=== PATIENT | female | born 1980 | race African-American/Black ===

== ENCOUNTER 2016-10-25 11:20 | Emergency (ER) | payer BC ==
--- NOTE | 2016-10-25 11:27 | ER Document Report ---
ED Medical Screen (RME) - General Stated Complaint: ABDOMINAL PAIN Notes: 36 yo female c/o dysuria, frequency, suprapubic pain since this morning. + hx/ o UTI. mild back pain. + nausea. no vomiting. no fever TRAVEL OUTSIDE OF THE [place] IN LAST 30 DAYS: No - Related Data Allergies/Adverse Reactions: oxycodone HCl [From Percocet] Allergy (Intermediate, Verified 10/25/16 11:25) Hives Past Medical History - Past Medical History Cardiac Medical History: Reports: Hx Pulmonary Embolism - When Pulmonary Medical History: Reports: Hx Bronchitis, Hx Pneumonia Neurological Medical History: Reports: Hx Migraine Renal/ Medical History: Reports: Hx Ectopic - 3, Hx Ovarian Cysts Musculoskeltal Medical History: Reports Hx Musculoskeletal Deformity Psychiatric Medical History: Reports: Hx Depression - With stillborn at the time her father had Past Surgical History: Reports: Hx Appendectomy, Hx Section, Hx Dilation and Curettage, Hx Gynecologic Surgery - Left Salpingectomy with ectopic , Hx Oral Surgery - [place] teeth - Immunizations Immunizations up to date: Yes Hx Diphtheria, Pertussis, Tetanus Vaccination: Yes - 2014
[2016-10-25 12:10] LABS: APPEARANCE,URINE CLOUDY; BILIRUBIN,URINE NEGATIVE (NEGATIVE); GLUCOSE, URINE NEGATIVE (NEGATIVE); KETONES,URINE TRACE mg/dL (NEGATIVE); LEUKOCYTE ESTERASE,URINE LARGE (NEGATIVE); NITRITE,URINE NEGATIVE (NEGATIVE); PROTEIN,URINE >=500 mg/dL (NEGATIVE); URINE SPECIFIC GRAVITY 1.022; UROBILINOGEN,URINE NEGATIVE mg/dL (<2.0)
[2016-10-25] MEDS ORDERED: ONDANSETRON ODT 4 MG TAB (6 TAB/DSPK) PO PRN (12:51)
[2016-10-25] MEDS ORDERED: ONDANSETRON 4 MG TAB.RAPDIS PO ONE (12:51)
[2016-10-25] MEDS ORDERED: PHENAZOPYRIDINE HCL 200 MG TABLET PO ONE (12:51)
[2016-10-25] MEDS ORDERED: SULFAMETHOXAZOLE/TRIMETHOPRIM 800-160 MG TABLET PO ONE (12:51)
--- NOTE | 2016-10-25 12:59 | ER Document Report ---
ED General - General Chief Complaint: Pain With Urination Stated Complaint: ABDOMINAL PAIN TRAVEL OUTSIDE OF THE [place] IN LAST 30 DAYS: No - HPI Patient complains to provider of: dysuria suprapubic abdominal pain Notes: Patient coming in for evaluation of dysuria and suprapubic abdominal pain ongoing for the last 24 hours. Patient denies fevers chills diarrhea vomiting patient states she is nauseous. Patient is unaware for status. Denies any vaginal bleeding vaginal discharge. Denies trauma to the area denies recent antibiotics recent travel. - Related Data Allergies/Adverse Reactions: oxycodone HCl [From Percocet] Allergy (Intermediate, Verified 10/25/16 11:25) Hives Past Medical History - Social History Smoking Status: Never Smoker Cigarette use (# per day): No Chew tobacco use (# tins/day): No Frequency of alcohol use: None Drug Abuse: None Family History: Arthritis, CAD, CVA, DM, Hyperlipidemia, Hypertension, Malignancy, Thyroid Disfunction Patient has suicidal ideation: No Patient has homicidal ideation: No - Past Medical History Cardiac Medical History: Reports: Hx Pulmonary Embolism - When Pulmonary Medical History: Reports: Hx Bronchitis, Hx Pneumonia Neurological Medical History: Reports: Hx Migraine Renal/ Medical History: Reports: Hx Ectopic - 3, Hx Ovarian Cysts Musculoskeltal Medical History: Reports Hx Musculoskeletal Deformity Psychiatric Medical History: Reports: Hx Depression - With stillborn at the time her father had Past Surgical History: Reports: Hx Appendectomy, Hx Section, Hx Dilation and Curettage, Hx Gynecologic Surgery - Left Salpingectomy with ectopic , Hx Oral Surgery - [place] teeth - Immunizations Immunizations up to date: Yes Hx Diphtheria, Pertussis, Tetanus Vaccination: Yes - 2014 Review of Systems - Review of Systems Constitutional: No symptoms reported EENT: No symptoms reported Cardiovascular: No symptoms reported Respiratory: No symptoms reported Gastrointestinal: Abdominal pain Genitourinary: Dysuria Female Genitourinary: No symptoms reported Musculoskeletal: No symptoms reported Skin: No symptoms reported Hematologic/Lymphatic: No symptoms reported Neurological/Psychological: No symptoms reported -: Yes All other systems reviewed and negative Physical Exam - Vital signs Vitals: Temp Pulse Resp BP Pulse Ox 97.9 F 83 17 131/71 H 97 10/25/16 11:25 10/25/16 11:25 10/25/16 11:25 10/25/16 11:25 10/25/16 11:25 Interpretation: Normal - General General appearance: Appears well, Alert - HEENT Head: Normocephalic, Atraumatic Eyes: Normal Pupils: PERRL - Respiratory Respiratory status: No respiratory distress Chest status: Nontender Breath sounds: Normal Chest palpation: Normal - Cardiovascular Rhythm: Regular Heart sounds: Normal auscultation Murmur: No - Abdominal Inspection: Normal Distension: No distension Bowel sounds: Normal Tenderness: Tender - Mild suprapubic abdominal pain Organomegaly: No organomegaly - Back Back: Normal, Nontender - Extremities General upper extremity: Normal inspection, Nontender, Normal color, Normal ROM , Normal temperature General lower extremity: Normal inspection, Nontender, Normal color, Normal ROM , Normal temperature, Normal weight bearing. No: Stevie's sign - Neurological Neuro grossly intact: Yes Cognition: Normal Orientation: AAOx4 [place] Coma Scale Eye Opening: Spontaneous [place] Coma Scale Verbal: Oriented [place] Coma Scale Motor: Obeys Commands [place] Coma Scale Total: 15 Speech: Normal Motor strength normal: LUE, RUE, LLE, RLE Sensory: Normal - Psychological Associated symptoms: Normal affect, Normal mood - Skin Skin Temperature: Warm Skin Moisture: Dry Skin Color: Normal Course - Re-evaluation Re-evalutation: 10/25/16 13:40 Urinalysis is more consistent with acute cystitis or urinary tract infection. Patient will be discharged home with Bactrim Pyridium and Zofran. Patient was given doses of all 3 these medications prior to leaving. Patient was able to tolerate these medications without vomiting. Patient was encouraged follow-up with her primary care physician. - Vital Signs Vital signs: Temp Pulse Resp BP Pulse Ox 97.9 F 64 15 121/72 98 10/25/16 11:25 10/25/16 13:25 10/25/16 13:25 10/25/16 13:25 10/25/16 13:25 - Laboratory Laboratory results interpreted by me: 10/25/16 11:30 Urine Protein >=500 H Urine Ketones TRACE H Urine Blood LARGE H Ur Leukocyte Esterase LARGE H Discharge - Discharge Clinical Impression: UTI (urinary tract infection) Qualifiers: Urinary tract infection type: acute cystitis Hematuria presence: with hematuria Qualified Code(s): N30.01 - Acute cystitis with hematuria Disposition: HOME, SELF-CARE Instructions: Trimethoprim-Sulfa ([facility]), Urinary Tract Infection ([facility]), Urinary Anesthetic Agent ([facility]) Additional Instructions: Please take medications as prescribed. Return to ER if symptoms worsen. Follow -up with your primary care physician. Prescriptions: Ondansetron [Zofran Odt 4 mg Tablet] 1 - 2 tab PO Q4H PRN #15 tab.rapdis PRN Reason: For Nausea/Vomiting Phenazopyridine HCl [Pyridium 100 Mg Tablet] 100 mg PO TID 5 Days Sulfamethoxazole/Trimethoprim [Bactrim 400-80 mg Tablet] 1 each PO BID #20 tablet Forms: Return to Work
[2016-10-25 13:27] VITALS: BP 121/72
== END 2016-10-25 13:25 | disposition home or self-care (01) ==
LOC: ER 11:20
DX: N30.01 Acute cystitis with hematuria (principal); R10.9 Unspecified abdominal pain; R30.0 Dysuria; R35.0 Frequency of micturition
CPT/HCPCS: 99284; 87086; 81025; 81001; S0119; J3490

== ENCOUNTER 2017-03-28 21:32 | Emergency (ER) | payer BC, MEDICAID ==
[2017-03-28] MEDS ORDERED: METOCLOPRAMIDE HCL INJ/PF 10 MG/2 ML SDV IV ONE (22:48)
[2017-03-28] MEDS ORDERED: DIPHENHYDRAMINE HCL 50 MG/ML VIAL IV ONE (22:48)
[2017-03-28] MEDS ORDERED: KETOROLAC TROMETHAMINE INJ/PF 30 MG/1 ML SDV IV ONE (22:48)
[2017-03-28] MEDS ORDERED: NORMAL SALINE 1000 ML 1,000 ML IV ONE (22:48)
--- NOTE | 2017-03-28 22:51 | ER Document Report ---
ED Headache - General Chief Complaint: Headache <24 hrs old Stated Complaint: HEADACHE Time Seen by Provider: 03/28/17 22:42 Notes: Patient is a 37-year-old female who comes emergency department for chief complaint of a migraine headache, she has a history of migraines in the past, she reports a throbbing headache on the right side in the middle of her forehead , photophobia, nausea, she has vomited twice. She does state these are her typical migraine symptoms but she has not had one in a while. She took Tylenol earlier without relief. She states she has been treated for migraines in the past but is not currently medicated for them. She has a hx of PE in the past but she is not on any blood thinners. she denies head injury, fever, any other areas of pain. LMP within the past month. TRAVEL OUTSIDE OF THE [place] IN LAST 30 DAYS: No - Related Data Allergies/Adverse Reactions: oxycodone HCl [From Percocet] Allergy (Intermediate, Verified 10/25/16 11:25) Arturo Past Medical History - General Information source: Patient - Social History Smoking Status: Never Smoker Frequency of alcohol use: None Drug Abuse: None Lives with: Family Family History: Arthritis, CAD, CVA, DM, Hyperlipidemia, Hypertension, Malignancy, Thyroid Disfunction Patient has suicidal ideation: No Patient has homicidal ideation: No - Past Medical History Cardiac Medical History: Reports: Hx Pulmonary Embolism - When Pulmonary Medical History: Reports: Hx Bronchitis, Hx Pneumonia Neurological Medical History: Reports: Hx Migraine Renal/ Medical History: Reports: Hx Ectopic - 3, Hx Ovarian Cysts. Denies: Hx Peritoneal Dialysis Musculoskeltal Medical History: Reports Hx Musculoskeletal Deformity Psychiatric Medical History: Reports: Hx Depression - With stillborn at the time her father had Past Surgical History: Reports: Hx Appendectomy, Hx Section, Hx Dilation and Curettage, Hx Gynecologic Surgery - Left Salpingectomy with ectopic , Hx Oral Surgery - [place] teeth - Immunizations Immunizations up to date: Yes Hx Diphtheria, Pertussis, Tetanus Vaccination: Yes - 2014 Review of Systems - Review of Systems Constitutional: No symptoms reported EENT: No symptoms reported Cardiovascular: No symptoms reported Respiratory: No symptoms reported Gastrointestinal: See HPI Genitourinary: No symptoms reported Female Genitourinary: No symptoms reported Musculoskeletal: No symptoms reported Skin: No symptoms reported Hematologic/Lymphatic: No symptoms reported Neurological/Psychological: See HPI Physical Exam - Vital signs Vitals: Temp Pulse Resp BP Pulse Ox 98 F 71 16 127/77 H 99 03/28/17 21:57 03/28/17 21:57 03/28/17 21:57 03/28/17 21:57 03/28/17 21:57 Interpretation: Normal - General General appearance: Alert, Anxious In distress: Mild - HEENT Head: Normocephalic, Atraumatic Eyes: Tears Conjunctiva: Normal Extraocular movements intact: Yes Eyelashes: Normal Pupils: PERRL Ears: Normal External canal: Normal Tympanic membrane: Normal Sinus: Normal Nasal: Normal Mouth/Lips: Normal Mucous membranes: Normal Pharynx: Normal Neck: Normal. No: Meningismus - Respiratory Respiratory status: No respiratory distress Chest status: Nontender Breath sounds: Normal Chest palpation: Normal - Cardiovascular Rhythm: Regular Heart sounds: Normal auscultation Murmur: No - Abdominal Inspection: Normal Distension: No distension Bowel sounds: Normal Tenderness: Nontender. No: Tender, McBurney's point, Rubalcava's sign, Guarding Organomegaly: No organomegaly - Back Back: Normal, Nontender - Extremities General upper extremity: Normal inspection, Nontender, Normal color, Normal ROM , Normal temperature General lower extremity: Normal inspection, Nontender, Normal color, Normal ROM , Normal temperature, Normal weight bearing. No: Stevie's sign - Neurological Neuro grossly intact: Yes Cognition: Normal Orientation: AAOx4 [place] Coma Scale Eye Opening: Spontaneous [place] Coma Scale Verbal: Oriented [place] Coma Scale Motor: Obeys Commands [place] Coma Scale Total: 15 Speech: Normal Motor strength normal: LUE, RUE, LLE, RLE Sensory: Normal - Psychological Associated symptoms: Normal affect, Normal mood - Skin Skin Temperature: Warm Skin Moisture: Dry Skin Color: Normal Course - Re-evaluation Re-evalutation: Patient is tearful and obviously very uncomfortable from her headache on initial evaluation, however on reevaluation after treatment patient smiling, states her headache is almost completely resolved, she states she feels much better and she wants to try drinking something. Patient was given lina jaden, she tolerated this without difficulty, she states she feels much better and she wants to go home. No neurological deficits on examination. Patient has history of the same. Giving Fioricet for treatment, discussed primary care follow-up, discussed return precautions, patient states understanding and agreement. - Vital Signs Vital signs: Temp Pulse Resp BP Pulse Ox 97.8 F 74 16 121/70 98 03/29/17 01:25 03/29/17 01:25 03/29/17 01:25 03/29/17 01:25 03/29/17 01:25 Discharge - Discharge Clinical Impression: Headache Qualifiers: Headache type: unspecified Headache chronicity pattern: acute headache Intractability: not intractable Qualified Code(s): R51 - Headache Condition: Stable Disposition: HOME, SELF-CARE Additional Instructions: Your symptoms and response to treatment are consistent with a migraine. Take the prescribed medication if needed. Follow-up with primary care for additional management. Return to emergency department for any returned, concerning, or worsening symptoms. Prescriptions: Butalb/Acetaminophen/Caffeine [Fioricet (50-325-40 mg) Tablet] 1 tab PO Q4HP PRN #30 tab PRN Reason: Forms: Return to Work
[2017-03-29 01:42] VITALS: BP 121/70
== END 2017-03-29 01:30 | disposition home or self-care (01) ==
LOC: ER 21:32
DX: R51 Headache (principal); R11.2 Nausea with vomiting, unspecified
CPT/HCPCS: 99283; 96374; 96375; J1200; J1885; J2765; J7030

== ENCOUNTER 2017-10-11 16:54 | Emergency (ER) | payer MEDICAID ==
--- NOTE | 2017-10-11 17:38 | ER Document Report ---
ED Medical Screen (RME) - General Chief Complaint: Abdominal Pain Stated Complaint: ABDOMINAL PAIN,VAGINAL ITCH/ODOR Time Seen by Provider: 10/11/17 17:37 Mode of Arrival: Ambulatory Information source: Patient Notes: 37-year-old female presents with complaints of 1 day duration of abdominal pain as well as 3 day duration of vaginal discharge itching I have greeted and performed a rapid initial assessment of this patient. A comprehensive ED assessment and evaluation of the patient, analysis of test results and completion of the medical decision making process will be conducted by additional ED providers. PHYSICAL EXAMINATION: GENERAL: Well-appearing, well-nourished and in no acute distress. HEAD: Atraumatic, normocephalic. EYES: Pupils equal round extraocular movements intact, conjunctiva are normal. ENT: Nares patent NECK: Normal range of motion LUNGS: No respiratory distress Musculoskeletal: Normal range of motion NEUROLOGICAL: Normal speech, normal gait. PSYCH: Normal mood, normal affect. SKIN: Warm, Dry, normal turgor, no rashes or lesions noted. TRAVEL OUTSIDE OF THE [place] IN LAST 30 DAYS: No - Related Data Allergies/Adverse Reactions: oxycodone HCl [From Percocet] Allergy (Intermediate, Verified 10/11/17 16:56) Hives Past Medical History - Social History Chew tobacco use (# tins/day): No Frequency of alcohol use: Occasional Drug Abuse: None - Past Medical History Cardiac Medical History: Reports: Hx Pulmonary Embolism - When Pulmonary Medical History: Reports: Hx Bronchitis, Hx Pneumonia Neurological Medical History: Reports: Hx Migraine Renal/ Medical History: Reports: Hx Ectopic - 3, Hx Ovarian Cysts. Denies: Hx Peritoneal Dialysis Musculoskeltal Medical History: Reports Hx Musculoskeletal Deformity Psychiatric Medical History: Reports: Hx Depression - With stillborn at the time her father had Past Surgical History: Reports: Hx Appendectomy, Hx Section, Hx Dilation and Curettage, Hx Gynecologic Surgery - Left Salpingectomy with ectopic , Hx Oral Surgery - [place] teeth - Immunizations Immunizations up to date: Yes Hx Diphtheria, Pertussis, Tetanus Vaccination: Yes - 2014 Physical Exam - Vital signs Vitals: Temp Pulse Resp BP Pulse Ox 98.9 F 81 16 112/72 97 10/11/17 17:06 10/11/17 17:06 10/11/17 17:06 10/11/17 17:06 10/11/17 17:06 Course - Vital Signs Vital signs: Temp Pulse Resp BP Pulse Ox 98.9 F 81 16 112/72 97 10/11/17 17:06 10/11/17 17:06 10/11/17 17:06 10/11/17 17:06 10/11/17 17:06
[2017-10-11 18:28] LABS: ABSOLUTE BASOPHILS # (AUTO) 0.1 10^3/uL (0.0-0.2); ABSOLUTE EOSINOPHILS # (AUTO) 0.1 10^3/uL (0.0-0.6); ABSOLUTE LYMPHOCYTES (AUTO) 2.4 10^3/uL (0.5-4.7); ABSOLUTE MONOCYTES (AUTO) 0.4 10^3/uL (0.1-1.4); ABSOLUTE NEUT (AUTO) 4.5 10^3/uL (1.7-8.2); BASOPHILS % (AUTO) 0.7 % (0-2); EOSINOPHILS % (AUTO) 1.5 % (0-6); HEMATOCRIT 40.5 % (36.0-47.0); HEMOGLOBIN 13.5 g/dL (12.0-15.5); LYMPHOCYTES % (AUTO) 31.9 % (13-45); MEAN CORPUSCULAR HEMOGLOBIN 28.6 pg (27.0-33.4); MEAN CORPUSCULAR HGB CONC 33.4 g/dL (32.0-36.0); MEAN CORPUSCULAR VOLUME 86 fl (80-97); MONOCYTES % (AUTO) 5.4 % (3-13); RED BLOOD COUNT 4.73 10^6/uL (3.72-5.28); RED CELL DISTRIBUTION WIDTH 13.2 % (11.5-14.0); SEGMENTED NEUTROPHILS % (AUTO) 60.5 % (42-78); WHITE BLOOD COUNT 7.5 10^3/uL (4.0-10.5)
[2017-10-11] MEDS ORDERED: CEFTRIAXONE INJ 250 MG VIAL IM ONE (18:47)
[2017-10-11] MEDS ORDERED: METRONIDAZOLE 500 MG TABLET PO ONE (18:47)
[2017-10-11] MEDS ORDERED: LIDOCAINE 1% INJ-PF (10 MG/ML) 30 ML SDV INJ ONE (18:47)
[2017-10-11] MEDS ORDERED: DOXYCYCLINE HYCLATE 100 MG TABLET PO ONE (18:47)
--- NOTE | 2017-10-11 18:49 | ER Document Report ---
ED GI/ - General Mode of Arrival: Ambulatory Information source: Patient TRAVEL OUTSIDE OF THE [place] IN LAST 30 DAYS: No - HPI Patient complains to provider of: Abdominal pain, Vaginal discharge Onset: Other - see notes above Location: Other - see notes above Sexual history: Active, IUD - Mirena Associated symptoms: Other - see notes above <EVELYNE NAVA - Last Filed: 10/11/17 23:31> <DEBRA HOPKINS - Last Filed: 10/11/17 23:36> - General Chief Complaint: Abdominal Pain Stated Complaint: ABDOMINAL PAIN,VAGINAL ITCH/ODOR Time Seen by Provider: 10/11/17 17:37 Notes: 37 year old female presents to the ED complaining of suprapubic abdominal pain that started yesterday and vaginal odor and pruritus that started 3 days ago. Patient reports she has used a home remedy of apple cider vinegar and Monostat to no relief. Patient denies any vaginal discharge, new sexual partners, dysuria , burning with urination, or vomiting. Patient wants her Mirena IUD (implanted 4 years ago) removed in the ED and acknowledges that removal will no longer protect her from future pregnancies. Patient reports that she has had multiple ovarian cysts in the past secondary to the IUD and wants it removed at this time. (EVELYNE NAVA) - Related Data Allergies/Adverse Reactions: oxycodone HCl [From Percocet] Allergy (Intermediate, Verified 10/11/17 16:56) Hives Past Medical History - General Information source: Patient - Social History Smoking Status: Never Smoker Chew tobacco use (# tins/day): No Frequency of alcohol use: Occasional Drug Abuse: None Family History: Arthritis, CAD, CVA, DM, Hyperlipidemia, Hypertension, Malignancy, Thyroid Disfunction Patient has suicidal ideation: No Patient has homicidal ideation: No - Past Medical History Cardiac Medical History: Reports: Hx Pulmonary Embolism - When Pulmonary Medical History: Reports: Hx Bronchitis, Hx Pneumonia Neurological Medical History: Reports: Hx Migraine Renal/ Medical History: Reports: Hx Ectopic - 3, Hx Ovarian Cysts. Denies: Hx Peritoneal Dialysis Musculoskeltal Medical History: Reports Hx Musculoskeletal Deformity Psychiatric Medical History: Reports: Hx Depression - With stillborn at the time her father had Past Surgical History: Reports: Hx Appendectomy, Hx Section, Hx Dilation and Curettage, Hx Gynecologic Surgery - Left Salpingectomy with ectopic , Hx Oral Surgery - [place] teeth - Immunizations Immunizations up to date: Yes Hx Diphtheria, Pertussis, Tetanus Vaccination: Yes - 2014 <EVELYNE NAVA - Last Filed: 10/11/17 23:31> Review of Systems - Review of Systems Constitutional: No symptoms reported EENT: No symptoms reported Cardiovascular: No symptoms reported Respiratory: No symptoms reported Gastrointestinal: See HPI, Abdominal pain - suprapubic. denies: Vomiting Genitourinary: No symptoms reported. denies: Burning, Dysuria Female Genitourinary: See HPI, Vaginal odor Musculoskeletal: No symptoms reported Skin: No symptoms reported Hematologic/Lymphatic: No symptoms reported Neurological/Psychological: No symptoms reported -: Yes All other systems reviewed and negative <EVELYNE NAVA - Last Filed: 10/11/17 23:31> Physical Exam <EVELYNE NAVA - Last Filed: 10/11/17 23:31> <DEBRA HOPKINS - Last Filed: 10/11/17 23:36> - Vital signs Vitals: Temp Pulse Resp BP Pulse Ox 98.9 F 81 16 112/72 97 10/11/17 17:06 10/11/17 17:06 10/11/17 17:06 10/11/17 17:06 10/11/17 17:06 - Notes Notes: GENERAL: Alert, interacts well. No acute distress. HEAD: Normocephalic, atraumatic. EYES: Pupils equal, round, and reactive to light. Extraocular movements intact. ENT: Oral mucosa moist, tongue midline. NECK: Full range of motion. Supple. Trachea midline. LUNGS: Clear to auscultation bilaterally, no wheezes, rales, or rhonchi. No respiratory distress. HEART: Regular rate and rhythm. No murmurs, gallops, or rubs. ABDOMEN: Soft. Non-distended. Bowel sounds present in all 4 quadrants. Suprapubic tenderness to palpation. No guarding, rebound, or rigidity. GENITOURINARY: Thin green discharge visualized. Cervical motion tenderness to palpation. Pelvic exam chaperoned by Rosalinda Ball RN. BACK: No CVA tenderness to percussion. EXTREMITIES: Moves all 4 extremities spontaneously. No edema, radial pulses 2/4 bilaterally. No cyanosis. NEUROLOGICAL: Alert and oriented x3. Normal speech. PSYCH: Normal affect, normal mood. SKIN: Warm, dry, normal turgor. No rashes or lesions noted. (EVELYNE NAVA) Course - Laboratory Result Diagrams: 10/11/17 18:13 10/11/17 18:13 <EVELYNE NAVA - Last Filed: 10/11/17 23:31> - Laboratory Result Diagrams: 10/11/17 18:13 10/11/17 18:13 <DEBRA HOPKINS - Last Filed: 10/11/17 23:36> - Re-evaluation Re-evalutation: 10/11/17 20:52 Physical examination consistent with PID, swabs revealed trichomonas but no gonorrhea or chlamydia, patient is treated with Rocephin, doxycycline and Flagyl , IUD was removed per her request. CBC unremarkable, chemistries unremarkable, test negative, urinalysis shows moderate leukocyte esterase, this will be treated with the doxycycline. No yeast was seen. Patient counseled on having her partner tested for Trichomonas and not having sex until he has been tested and treated. Discharged home. 10/11/17 23:32 Strings were in good position, using curved hemostats IUD was removed with gentle pressure. Discharged home. (DEBRA HOPKINS) - Vital Signs Vital signs: Temp Pulse Resp BP Pulse Ox 98.9 F 89 16 118/73 97 10/11/17 17:06 10/11/17 21:25 10/11/17 21:25 10/11/17 21:25 10/11/17 21:25 - Laboratory Laboratory results interpreted by me: 10/11/17 10/11/17 17:50 18:13 Chloride 108 H Urine Ketones 20 H Ur Leukocyte Esterase MODERATE H Discharge <EVELYNE NAVA - Last Filed: 10/11/17 23:31> <DEBRA HOPKINS - Last Filed: 10/11/17 23:36> - Discharge Clinical Impression: Pelvic inflammatory disease, Trichomonas vaginalis infection, Encounter for IUD removal Condition: Stable Disposition: HOME, SELF-CARE Additional Instructions: Pelvic Inflammatory Disease You have been diagnosed as having pelvic inflammatory disease (PID). This is an infection of the fallopian tubes and surrounding areas of the pelvis. Symptoms are usually pelvic pain and discharge. The infection can do permanent damage to the tubes and ovaries. It should be taken very seriously. Treatment is antibiotics, which may be given by vein or by injection if the infection seems serious. It's important that you receive all recommended medication. Condoms help prevent spread of this infection to others. Because this infection is spread sexually, it's important that your sexual partner be checked before resuming sexual relations. Your tests were negative for gonorrhea and chlamydia today. They did show trichomonas. Call the doctor or return at once if you develop increasing fever, rash, severe pelvic pain, vaginal bleeding (other than your period), or problems with your bladder or bowels. Your IUD was removed. You are no longer protected against . Trichomonas Infection Trichomoniasis is infection of the vagina or male genital tract with Trichomonas vaginalis. It can be asymptomatic or cause urethritis, vaginitis, or occasionally cystitis, epididymitis, or prostatitis. Diagnosis is by microscopic examination of vaginal or prostatic secretions or by urethral culture. Patients and sex partners are treated with metronidazole. T. vaginalis is a flagellated, sexually transmitted protozoan that more often infects women (about 20% of women of reproductive age) than men. Infection may be asymptomatic in either sex, but asymptomatic is the rule for men. In men, protozoa may persist for long periods in the tract without causing symptoms; thus, protozoa may be transmitted unwittingly to sex partners. Trichomoniasis may account for up to 5% of nongonococcal, nonchlamydial urethritis in men in some areas. Co-infection with gonorrhea and other sexually transmitted diseases (STDs) is common. In women, symptoms range from none to copious, yellow-green, frothy vaginal discharge with soreness of the vulva and perineum, dyspareunia, and dysuria. Asymptomatic infection may become symptomatic at any time as the vulva and perineum become inflamed and edema develops in the labia. The vaginal thomas and surface of the cervix may have punctate, red "strawberry" spots. Urethritis and possibly cystitis may also occur. Men are usually asymptomatic; however, sometimes urethritis results in a discharge that may be transient, frothy, or purulent or that causes dysuria and frequency, usually early in the morning. Often, urethritis is mild and causes only minimal urethral irritation and occasional moisture at the urethral meatus , under the foreskin, or both. Epididymitis and prostatitis are rare complications. Trichomoniasis is suspected in women with vaginitis, in men with urethritis , and in their sex partners. Suspicion is high if symptoms persist after patients have been evaluated and treated for other infections such as gonorrhea and chlamydial, mycoplasmal, and ureaplasmal infections. In women, diagnosis is based on clinical criteria and in-office testing. The saline wet mount is examined microscopically as soon as possible to detect trichomonads.In men, microscopy of urine is insensitive, although occasionally organisms are visible in a first-voided morning specimen or a centrifuged specimen. Cultures of urine and urethral swabs are more sensitive. As with diagnosis of any STD, patients with trichomoniasis should be tested to exclude other common STDs such as gonorrhea and chlamydial infection. Metronidazole or tinidazole 2 g po in a single dose cures up to 95% of women if sex partners are treated simultaneously. Effectiveness of single-dose regimens in men is not as clear, so treatment is typically with metronidazole or tinidazole 500 mg bid for 5 to 7 days. Sex partners should be screened and treated for trichomoniasis and other STDs. If poor adherence to follow-up is likely, treatment can be initiated in sex partners of patients with documented trichomoniasis without confirming the diagnosis in the partner. Prescriptions: Doxycycline Hyclate 100 mg PO BID #28 capsule Metronidazole [Flagyl 500 mg Tablet] 500 mg PO Q6H #40 tablet Referrals: JUAN PUGH MD [ACTIVE STAFF] - Follow up in 1 week Scribe Attestation: 10/11/17 23:33 I personally performed the services described in the documentation, reviewed and edited the documentation which was dictated to the scribe in my presence, and it accurately records my words and actions. (DEBRA HOPKINS) Scribe Documentation - Scribe Written by Mikhail:: Mikhail Tapia, 10/11/2017 [id number] acting as scribe for :: Brad <EVELYNE NAVA - Last Filed: 10/11/17 23:31>
[2017-10-11 18:50] LABS: ALANINE AMINOTRANSFERASE 28 U/L (9-52); ALBUMIN 3.9 g/dL (3.5-5.0); ALKALINE PHOSPHATASE 69 U/L (38-126); ANION GAP 11 (5-19); ASPARTATE AMINO TRANSFERASE 18 U/L (14-36); BILIRUBIN,DIRECT 0.2 mg/dL (0.0-0.4); BILIRUBIN,TOTAL 0.4 mg/dL (0.2-1.3); BLOOD UREA NITROGEN 15 mg/dL (7-20); CALCIUM 9.8 mg/dL (8.4-10.2); CARBON DIOXIDE 23 mmol/L (22-30); CHLORIDE 108 mmol/L (98-107); CREATININE RESULT 0.88 mg/dL (0.52-1.25); GLUCOSE 99 mg/dL (75-110); LIPASE 124.6 U/L (23-300); SODIUM 141.6 mmol/L (137-145); TOTAL PROTEIN 7.1 g/dL (6.3-8.2)
[2017-10-11 18:54] LABS: APPEARANCE,URINE SLIGHTLY-CLOUDY; BILIRUBIN,URINE NEGATIVE (NEGATIVE); GLUCOSE, URINE NEGATIVE (NEGATIVE); KETONES,URINE 20 mg/dL (NEGATIVE); LEUKOCYTE ESTERASE,URINE MODERATE (NEGATIVE); NITRITE,URINE NEGATIVE (NEGATIVE); PROTEIN,URINE NEGATIVE (NEGATIVE); URINE SPECIFIC GRAVITY 1.027; UROBILINOGEN,URINE NEGATIVE mg/dL (<2.0)
[2017-10-11 21:32] VITALS: BP 118/73
== END 2017-10-11 21:32 | disposition home or self-care (01) ==
LOC: ER 16:54
DX: N73.9 Female pelvic inflammatory disease, unspecified (principal); A59.01 Trichomonal vulvovaginitis; L29.2 Pruritus vulvae; Z30.432 Encounter for removal of intrauterine contraceptive device
CPT/HCPCS: 99284; 96372; 36415; 87210; 83690; 85025; 81025; 80053; 81001; 87491; 87591; J3490 ×3; J0696

== ENCOUNTER 2018-08-17 11:38 | Emergency (ER) | payer MEDICAID ==
[2018-08-17] MEDS ORDERED: GUAIFENESIN/CODEINE PHOS 100-10 MG/ 5 ML UDC PO ONE (12:46)
[2018-08-17] MEDS ORDERED: IPRATROPIUM/ALBUTEROL 0.5-2.5 MG/3 ML AMPUL NEB ONE (12:46)
[2018-08-17 12:48] LABS: APPEARANCE,URINE SLIGHTLY-CLOUDY; BILIRUBIN,URINE NEGATIVE (NEGATIVE); COLOR,URINE YELLOW; GLUCOSE, URINE NEGATIVE (NEGATIVE); KETONES,URINE NEGATIVE (NEGATIVE); LEUKOCYTE ESTERASE,URINE TRACE (NEGATIVE); NITRITE,URINE NEGATIVE (NEGATIVE); PROTEIN,URINE NEGATIVE (NEGATIVE); URINE SPECIFIC GRAVITY 1.004; UROBILINOGEN,URINE NEGATIVE mg/dL (<2.0)
--- NOTE | 2018-08-17 12:49 | ER Document Report ---
ED Respiratory Problem - General Chief Complaint: Cough Stated Complaint: CHEST PAIN Time Seen by Provider: 08/17/18 12:45 Notes: History of Present Illness Chief Complaint: [cough] Cough quality= [dry], [without] sputum [No] hemoptysis [ ] History obtained from [patient] 38 years old female presents today with 2-3-day history of right ear pain sore throat coughing largely dry cough. Denies any difficulty in breathing. Denies any neck pain. Denies any neck stiffness. Denies any nausea vomiting abdominal pain diarrhea dysuria frequency. But had chest wall pain on coughing. Symptoms began: [past few days] Onset: [gradual] Timing: [constant, lasts hours, persists] Intensity: [moderate] Location: [respiratory tract] Radiation: [none] Migration: [none] Aggravating factors: [none] Relieving factors: [none] Review of Systems : All other systems negative as reviewed. CONSTITUTIONAL No Fever. EYES No eye pain. ENT No sore throat CARDIOVASCULAR No chest pain. RESPIRATORY No SOB, No wheezing, No orthopnea, No pedal edema. GI No abdominal pain, no vomiting, no diarrhea. GENITOURINARY No dysuria. SKIN No rash. NEUROLOGIC No headache. MUSCULOSKELETAL No back pain, No calf pain, No calf swelling Physical Exam CONSTITUTIONAL Vital signs reviewed, Patient has normal respiratory rate, Well appearing, Patient appears comfortable, normal stature. HEAD Atraumatic, Normocephalic. EYES Eyes are normal to inspection. ENT Pharyngeal tonsillar mucosa was erythematous Ears -right ear tympanic membrane is erythematous no exudates or bulging noted. , Left ear -normal to inspection, Nose examination normal. NECK No jugular venous distention. RESPIRATORY CHEST Breath sounds [normal], No respiratory distress. CARDIOVASCULAR RRR, No murmurs, Normal S1 S2, No rub, No gallop. ABDOMEN Abdomen is nontender, No masses, Bowel sounds normal, No distension, No peritoneal signs. BACK Normal inspection. UPPER EXTREMITY Inspection normal. LOWER EXTREMITY Inspection normal. NEURO No facial droop, normal speech. SKIN Skin is warm, Skin is dry, Skin is normal color. PSYCHIATRIC Normal affect. TRAVEL OUTSIDE OF THE [place] IN LAST 30 DAYS: No - HPI Notes: Dictated - Related Data Allergies/Adverse Reactions: oxycodone HCl [From Percocet] Allergy (Intermediate, Verified 08/17/18 11:44) Hives Past Medical History - Social History Smoking Status: Never Smoker Frequency of alcohol use: Rare Drug Abuse: None Lives with: Alone Family History: Arthritis, CAD, CVA, DM, Hyperlipidemia, Hypertension, Malignancy, Thyroid Disfunction - Past Medical History Cardiac Medical History: Reports: Hx Pulmonary Embolism - When Pulmonary Medical History: Reports: Hx Bronchitis, Hx Pneumonia Neurological Medical History: Reports: Hx Migraine Renal/ Medical History: Reports: Hx Ectopic - 3, Hx Ovarian Cysts. Denies: Hx Peritoneal Dialysis Musculoskeletal Medical History: Reports Hx Musculoskeletal Deformity Psychiatric Medical History: Reports: Hx Depression - With stillborn at the time her father had Past Surgical History: Reports: Hx Appendectomy, Hx Section, Hx Dilation and Curettage, Hx Gynecologic Surgery - Left Salpingectomy with ectopic , Hx Oral Surgery - [place] teeth - Immunizations Immunizations up to date: Yes Hx Diphtheria, Pertussis, Tetanus Vaccination: Yes - 2014 Review of Systems - Review of Systems Notes: Dictated Physical Exam - Vital signs Vitals: Temp Pulse Resp BP Pulse Ox 98.2 F 118 H 23 H 119/85 99 08/17/18 11:47 08/17/18 11:47 08/17/18 11:47 08/17/18 11:47 08/17/18 11:47 - Notes Notes: Dictated Course - Vital Signs Vital signs: Temp Pulse Resp BP Pulse Ox 98.2 F 118 H 23 H 119/85 99 08/17/18 11:47 08/17/18 11:47 08/17/18 11:47 08/17/18 11:47 08/17/18 11:47 - Laboratory Result Diagrams: 08/17/18 13:07 Laboratory results interpreted by me: 08/17/18 08/17/18 12:15 13:07 RBC 5.31 H Ur Leukocyte Esterase TRACE H - Diagnostic Test Radiology reviewed: Reports reviewed - Chest x-ray reported by radiologist as unremarkable Discharge - Discharge Clinical Impression: URI (upper respiratory infection) Qualifiers: URI type: unspecified viral URI Qualified Code(s): J06.9 - Acute upper respiratory infection, unspecified Pharyngitis Qualifiers: Pharyngitis/tonsillitis etiology: unspecified etiology Qualified Code(s): J02.9 - Acute pharyngitis, unspecified Condition: Fair Disposition: HOME, SELF-CARE Instructions: Upper Respiratory Infection, Infant or Child ([facility]) Prescriptions: Cephalexin Monohydrate [Keflex 500 mg Capsule] 500 mg PO Q6H 7 Days #30 capsule
[2018-08-17 13:25] LABS: ABSOLUTE BASOPHILS # (AUTO) 0.1 10^3/uL (0.0-0.2); ABSOLUTE EOSINOPHILS # (AUTO) 0.2 10^3/uL (0.0-0.6); ABSOLUTE LYMPHOCYTES (AUTO) 1.5 10^3/uL (0.5-4.7); ABSOLUTE MONOCYTES (AUTO) 0.4 10^3/uL (0.1-1.4); ABSOLUTE NEUT (AUTO) 4.3 10^3/uL (1.7-8.2); EOSINOPHILS % (AUTO) 3.2 % (0-6); LYMPHOCYTES % (AUTO) 22.9 % (13-45); MEAN CORPUSCULAR HEMOGLOBIN 28.2 pg (27.0-33.4); MEAN CORPUSCULAR HGB CONC 32.5 g/dL (32.0-36.0); MEAN CORPUSCULAR VOLUME 87 fl (80-97); MONOCYTES % (AUTO) 6.7 % (3-13); PLATELET COUNT 360 10^3/uL (150-450); RED BLOOD COUNT 5.31 10^6/uL (3.72-5.28); RED CELL DISTRIBUTION WIDTH 13.6 % (11.5-14.0); SEGMENTED NEUTROPHILS % (AUTO) 66.2 % (42-78); TOTAL CELLS COUNTED % (AUTO) 100 %; WHITE BLOOD COUNT 6.5 10^3/uL (4.0-10.5)
[2018-08-17 13:43] LABS: A TYPE INFLUENZA AG NEGATIVE (NEGATIVE); B INFLUENZA AG NEGATIVE (NEGATIVE)
--- NOTE | 2018-08-17 13:45 | RADIOLOGY REPORT (SQ) ---
EXAM DESCRIPTION: CHEST 2 VIEWS COMPLETED DATE/TIME: 08/17/2018 1:37 pm REASON FOR STUDY: Cough COMPARISON: 08/13/2007. EXAM PARAMETERS: NUMBER OF VIEWS: two views TECHNIQUE: Digital Frontal and Lateral radiographic views of the chest acquired. RADIATION DOSE: NA LIMITATIONS: none FINDINGS: LUNGS AND PLEURA: No opacities, masses or pneumothorax. No pleural effusion. MEDIASTINUM AND HILAR STRUCTURES: No masses or contour abnormalities. HEART AND VASCULAR STRUCTURES: Heart normal size. No evidence for failure. BONES: No acute findings. HARDWARE: None in the chest. OTHER: No other significant finding. IMPRESSION: NO ACUTE RADIOGRAPHIC FINDING IN THE CHEST. TECHNICAL DOCUMENTATION: JOB ID: [id number] [employer]- All Rights Reserved Reading location - IP/workstation name: [email or web address]
[2018-08-17 15:05] VITALS: BP 121/83
--- NOTE | 2018-08-17 19:22 | EKG REPORT ---
SEVERITY:- OTHERWISE NORMAL ECG - SINUS TACHYCARDIA : Confirmed by: Tamar Garcia MD 17-Aug-2018 19:21:26
== END 2018-08-17 15:04 | disposition home or self-care (01) ==
LOC: ER 11:38
DX: J06.9 Acute upper respiratory infection, unspecified (principal); B97.89 Other viral agents as the cause of diseases classified elsewhere; J02.9 Acute pharyngitis, unspecified; R05 Cough; H92.01 Otalgia, right ear; R07.89 Other chest pain; Z88.5 Allergy status to narcotic agent; Z86.711 Personal history of pulmonary embolism
CPT/HCPCS: 93005; 94640; 99285; 36415; 87070; 87880; 85025; 87077; 81001; 87804; 71046; 93010; J7620

== ENCOUNTER 2019-01-30 09:34 | Emergency (ER) | payer MEDICAID ==
[2019-01-30] MEDS ORDERED: IBUPROFEN 800 MG TABLET PO ONE (10:04)
--- NOTE | 2019-01-30 10:06 | ER Document Report ---
ED Hand/Wrist Injury - General Chief Complaint: Hand Pain Stated Complaint: HAND INJURY Time Seen by Provider: 01/30/19 09:54 Primary Care Provider: ROXIE CESAR MD [ACTIVE STAFF] - Follow up as needed RICHA MENDENHALL PA-C [Primary Care Provider] - Follow up as needed Mode of Arrival: Ambulatory Information source: Patient Notes: 39-year-old female presents to ED for aches "smashed hand. She states that she and her significant other saw a snake in the house that he was moving furniture around when he dropped his end of the cast because he saw this snake causing her to drop her into the couch onto her hand. She states she took ibuprofen last night with some relief and has been using ice on the hand. She came into the emergency room today to have the hand evaluated. TRAVEL OUTSIDE OF THE [place] IN LAST 30 DAYS: No - HPI Injury to: Hand Onset: Yesterday Where: Home, Indoors Timing: Still present Quality of pain: Sharp, Throbbing Severity: Severe Pain Level: 5 Context: Other - Drops external couch on her hand - Related Data Allergies/Adverse Reactions: oxycodone HCl [From Percocet] Allergy (Intermediate, Verified 01/30/19 09:36) Hives Past Medical History - General Information source: Patient - Social History Smoking Status: Never Smoker Cigarette use (# per day): No Chew tobacco use (# tins/day): No Smoking Education Provided: No Frequency of alcohol use: None Drug Abuse: None Lives with: Alone Family History: Arthritis, CAD, CVA, DM, Hyperlipidemia, Hypertension, Malignancy, Thyroid Disfunction Patient has suicidal ideation: No Patient has homicidal ideation: No - Medical History Medical History: Other - Past Medical History Cardiac Medical History: Reports: Hx Pulmonary Embolism - When Pulmonary Medical History: Reports: Hx Bronchitis, Hx Pneumonia EENT Medical History: Reports: None Neurological Medical History: Reports: Hx Migraine Endocrine Medical History: Reports: None Renal/ Medical History: Reports: Hx Ectopic - 3, Hx Ovarian Cysts Malignancy Medical History: Reports: None GI Medical History: Reports: None Musculoskeletal Medical History: Reports Hx Musculoskeletal Deformity Skin Medical History: Reports None Psychiatric Medical History: Reports: Hx Depression - With stillborn at the time her father had Traumatic Medical History: Reports: None Infectious Medical History: Reports: None Past Surgical History: Reports: Hx Appendectomy, Hx Section, Hx Dilation and Curettage, Hx Gynecologic Surgery - Left Salpingectomy with ectopic , Hx Oral Surgery - [place] teeth - Immunizations Immunizations up to date: Yes Hx Diphtheria, Pertussis, Tetanus Vaccination: Yes - 2014 Review of Systems - Review of Systems Constitutional: No symptoms reported EENT: No symptoms reported Cardiovascular: No symptoms reported Respiratory: No symptoms reported Gastrointestinal: No symptoms reported Genitourinary: No symptoms reported Female Genitourinary: No symptoms reported Musculoskeletal: Joint pain, Joint swelling Skin: No symptoms reported Hematologic/Lymphatic: No symptoms reported Neurological/Psychological: No symptoms reported -: Yes All other systems reviewed and negative Physical Exam - Vital signs Vitals: Temp Pulse Resp BP Pulse Ox 98.1 F 73 16 116/70 98 01/30/19 09:38 01/30/19 09:38 01/30/19 09:38 01/30/19 09:38 01/30/19 09:38 Interpretation: Normal - General General appearance: Appears well, Alert - HEENT Head: Normocephalic, Atraumatic Eyes: Normal Pupils: PERRL - Respiratory Respiratory status: No respiratory distress Chest status: Nontender Breath sounds: Normal Chest palpation: Normal - Cardiovascular Rhythm: Regular Heart sounds: Normal auscultation Murmur: No - Abdominal Inspection: Normal Distension: No distension Bowel sounds: Normal Tenderness: Nontender Organomegaly: No organomegaly - Back Back: Normal, Nontender - Extremities General upper extremity: Normal inspection, Nontender, Normal color, Normal ROM, Normal temperature General lower extremity: Normal inspection, Nontender, Normal color, Normal ROM, Normal temperature, Normal weight bearing. No: Stevie's sign Wrist: Tender, Axial load of thumb pain, Ecchymosis Hand: Tender, Ecchymosis, No evidence of human bite, No evidence of FB, Swelling - Neurological Neuro grossly intact: Yes Cognition: Normal Orientation: AAOx4 [place] Coma Scale Eye Opening: Spontaneous [place] Coma Scale Verbal: Oriented [place] Coma Scale Motor: Obeys Commands [place] Coma Scale Total: 15 Speech: Normal Motor strength normal: LUE, RUE, LLE, RLE Sensory: Normal - Psychological Associated symptoms: Normal affect, Normal mood - Skin Skin Temperature: Warm Skin Moisture: Dry Skin Color: Normal Course - Re-evaluation Re-evalutation: 01/30/19 10:31 X-ray was shown to patient the picture on the computer as well as a written report. X-ray shows that there is no fractures or no abnormalities that are acute. Patient does have mild swelling to the hand. Patient was treated with ibuprofen and a cockup splint to help with the discomfort. Patient was given instructions on elevation and ice and instructions to follow-up with primary care as well as orthopedics if she is necessary. Patient will be discharged home. Patient states she does not work and does not need a work note. Patient was discharged after she was able to verbalize understanding and agreement with treatment plan. - Vital Signs Vital signs: Temp Pulse Resp BP Pulse Ox 98.1 F 73 16 116/70 98 01/30/19 09:38 01/30/19 09:38 01/30/19 09:38 01/30/19 09:38 01/30/19 09:38 - Diagnostic Test Radiology reviewed: Image reviewed, Reports reviewed Procedures - Immobilization Right Hand Time completed: 10:37 Pre-Proc Neuro Vasc Exam: Normal Immobilizer type: Cock-up Performed by: PCT Post-Proc Neuro Vasc Exam: Normal Alignment checked and good: Yes Discharge - Discharge Clinical Impression: Hand contusion Qualifiers: Encounter type: initial encounter Laterality: right Qualified Code(s): S60.221A - Contusion of right hand, initial encounter Condition: Stable Disposition: HOME, SELF-CARE Additional Instructions: CONTUSION: Your injury has resulted in a contusion -- a crushing of the deep tissues. No injury to important structures was detected during the physician's exam. Con tusions vary in the amount of pain they cause, and in the length of time required for healing. Typically, the area will become bruised, and will remain painful to touch for two or three weeks. However, most patients are back to working and playing within a few days. After the initial period of rest and cold-packs, your symptoms (together with the doctor's recommendations) will determine how rapidly you can get back to full activity. Usually this means "do what feels okay, but don't do things that hurt." If re-examination was recommended, it's important to follow up as instructed. Call the doctor or return any time if pain increases, if swelling becomes severe, if you develop numbness or weakness in an injured extremity, or if any other alarming symptoms occur. USE OF TYLENOL (ACETAMINOPHEN): Acetaminophen may be taken for pain relief or fever control. It's much safer than aspirin, offering a wider range of "safe" dosages. It is safe during . Some brand names are Tylenol, Panadol, Datril, Anacin 3, Tempra, and Liquiprin. Acetaminophen can be repeated every four hours. The following are maximum recommended dosages: WEIGHT Dose Drops Elixir Chewable(80mg) (LBS.) drprs=droppers tsp=teaspoon 6 40 mg 0.4 ml (1/2) 6-11 80 mg 0.8 ml (full) tsp 1 tab 12-16 120 mg 1 1/2 drprs 3/4 tsp 1 1/2 tabs 17-23 160 mg 2 drprs 1 tsp 2 tabs 24-30 240 mg 3 drprs 1 1/2 tsp 3 tabs 30-35 320 mg 2 tsp 4 tabs 36-41 360 mg 2 1/4 tsp 4 1/2 tabs 42-47 400 mg 2 1/2 tsp 5 tabs 48-53 480 mg 3 tsp 6 tabs 54-59 520 mg 3 1/4 tsp 6 1/2 tabs 60-64 560 mg 3 1/2 tsp 7 tabs 65-70 600 mg 3 3/4 tsp 7 1/2 tabs 71-76 640 mg 4 tsp 8 tabs 77-82 720 mg 4 1/2 tsp 9 tabs 83-88 800 mg 5 tsp 10 tabs >89 pounds or adults 650 mg to 900 mg Acetaminophen can be repeated every four hours. Maximum dose not to exceed 4000 mg a day. These maximum recommended dosages are slightly higher than the dosages written on the product container, but these dosages are very safe and below the toxic dosage for acetaminophen. Ibuprofen Ibuprofen is an excellent, safe drug for pain control. In addition, it has potent antiinflammatory effects which are beneficial, especially in the tyree tment of injuries, arthritis, or tendonitis. It's best to take ibuprofen with food. Persons with ulcer disease or allergy to aspirin should notify their physician of this before taking ibuprofen. Take the medication exactly as prescribed. Don't take additional doses unless instructed to do so by your doctor. If you develop wheezing, shortness of breath, hives, faintness, stomach pain, vomiting, or dark black stools, return for re-evaluation at once. Ice & Elevation Apply ice packs frequently against the painful area. Many different schedules are recommended, such as "20 minutes on, 20 minutes off" or "one hour ice, two hours rest." If you need to work, you may need to go longer between ice treatments. You should plan to have the area ice packed AT LEAST one-fourth of the time. The ice should be applied over the wrap, tape, or splint, or over a layer of cloth -- not directly against the skin. Some ice bags have a built-in cloth and can be put directly on the skin. Your injured part should be elevated as much as possible over the next 48 hours. Try to keep the injury above the level of the heart. Avoid use of the injured area. Elevation and rest will decrease the swelling. FOLLOW-UP CARE: If you have been referred to a physician for follow-up care, call the physicians office for an appointment as you were instructed or within the next two days. If you experience worsening or a significant change in your symptoms, notify the physician immediately or return to the Emergency Department at any time for re-evaluation. Referrals: RICHA MENDENHALL PA-C [Primary Care Provider] - Follow up as needed ROXIE CESAR MD [ACTIVE STAFF] - Follow up as needed
--- NOTE | 2019-01-30 10:09 | RADIOLOGY REPORT (SQ) ---
EXAM DESCRIPTION: HAND RIGHT 3 VIEWS COMPLETED DATE/TIME: 01/30/2019 10:00 am REASON FOR STUDY: hand injury "smashed" COMPARISON: None. EXAM PARAMETERS: NUMBER OF VIEWS: Three views. TECHNIQUE: AP, lateral and oblique radiographic images acquired of the right hand. LIMITATIONS: The fingers are in a flexed position which limits detail somewhat. FINDINGS: MINERALIZATION: Normal. BONES: The fingers in a flexed position which limits detail somewhat. No acute fracture or dislocat ion. JOINTS: No effusions. SOFT TISSUES: No soft tissue swelling. No foreign body. OTHER: No other significant finding. IMPRESSION: 1. The examination is somewhat limited as above. 2. No acute osseous findings. TECHNICAL DOCUMENTATION: JOB ID: [id number] [employer]- All Rights Reserved Reading location - IP/workstation name: [email or web address]
[2019-01-30 10:43] VITALS: BP 119/74
== END 2019-01-30 10:46 | disposition home or self-care (01) ==
LOC: ER 09:34
DX: S60.221A Contusion of right hand, initial encounter (principal); M79.641 Pain in right hand; W22.03XA Walked into furniture, initial encounter
CPT/HCPCS: 99283; 73130; L3908; J3490

== ENCOUNTER 2019-04-15 18:07 | Observation (INO) | payer MEDICAID ==
[2019-04-15] MEDS ORDERED: NALOXONE HCL INJ 2 MG/2 ML DISP.SYRIN IV ONE (18:39)
[2019-04-15] MEDS: NALOXONE HCL INJ 2 MG/2 ML DISP.SYRIN IV ONE ×2 (18:40→19:33)
[2019-04-15] MEDS ORDERED: NORMAL SALINE 1000 ML 1,000 ML IV ONE (18:40)
--- NOTE | 2019-04-15 18:48 | ER Document Report ---
ED General - General Chief Complaint: Possible Overdose Stated Complaint: POSSIBLE OVERDOSE Time Seen by Provider: 04/15/19 18:39 Primary Care Provider: RICHA MENDENHALL PA-C [Primary Care Provider] - Follow up as needed TRAVEL OUTSIDE OF THE [place] IN LAST 30 DAYS: No - HPI Notes: Patient is a 39-year-old female that presents to the emergency department for chief complaint of overdose. Patient states that around 10 or 11 this morning she was involved in a traffic stop. When the police approached the car of the person she was in the car with handed her a packet and told her to swallow it. She does not know what was in the packet. She cannot tell me if it was a powder, liquid, or pills. She states that she was at [facility] emergency room and was discharged home around 4 PM. EMS was dispatched at [facility] because patient became unresponsive. A friend did administer Narcan which improved her mentation. EMS states that she was awake to painful stimuli at home but continue to wake up in route. Patient is continuing to be somnolent. She states she is not homicidal or suicidal. She ingested the packet because this person told her to. She denies history of drug abuse in the past. She states when she got home from [facility] she did not ingest anything including food or water. Currently she states she feels tired and cold. She denies vomiting. Past Medical History: Negative Past Surgical History: , tubal ligation Social History: Denies drugs alcohol and tobacco Family History: Reviewed and noncontributory for presenting illness Allergies: Reviewed, see documented allergy list. REVIEW OF SYSTEMS: CONSTITUTIONAL : No fever chills No diaphoresis No recent illness Fatigue EENT: No vision changes No congestion No sore throat CARDIOVASCULAR: No chest pain No palpitations RESPIRATORY: No shortness of breath No cough No difficulty breathing GASTROINTESTINAL: No abdominal pain No nausea No vomiting No diarrhea GENITOURINARY: No dysuria No hematuria No difficulty urinating MUSCULOSKELETAL: No back pain No leg pain No arm pain SKIN: No rashes No lesions LYMPHATIC: No swollen, enlarged glands. NEUROLOGICAL: No lightheadedness No headache No weakness No paresthesias PSYCHIATRIC: No anxiety No depression PHYSICAL EXAMINATION: Vital signs reviewed, nursing noted reviewed. GENERAL: Somnolent, wakes to verbal stimuli, well-nourished and in no acute distress. HEAD: Atraumatic, normocephalic. EYES: 1+ pupils bilaterally minimally reactive, extraocular movements intact, sclera anicteric, conjunctiva are normal. ENT: nares patent, oropharynx clear without exudates. Moist mucous membranes. NECK: Normal range of motion, supple without lymphadenopathy LUNGS: Breath sounds clear to auscultation bilaterally and equal. No wheezes rales or rhonchi. HEART: Tachycardic rate and regular rhythm without murmurs ABDOMEN: Soft, nontender, normoactive bowel sounds. No rebound, guarding, or rigidity. No masses appreciated. EXTREMITIES: Nontender, good range of motion, no pitting or edema. NEUROLOGICAL: No focal neurological deficits. Moves all extremities spontaneously Motor and sensory grossly intact on exam. PSYCH: Flat affect, withdrawn SKIN: Warm, Dry, normal turgor, no rashes or lesions noted on exposed skin - Related Data Allergies/Adverse Reactions: oxycodone HCl [From Percocet] Allergy (Intermediate, Verified 01/30/19 09:36) Hives Past Medical History - Social History Smoking Status: Never Smoker Family History: Arthritis, CAD, CVA, DM, Hyperlipidemia, Hypertension, Malignancy, Thyroid Disfunction - Past Medical History Cardiac Medical History: Reports: Hx Pulmonary Embolism - When Pulmonary Medical History: Reports: Hx Bronchitis, Hx Pneumonia Neurological Medical History: Reports: Hx Migraine Renal/ Medical History: Reports: Hx Ectopic - 3, Hx Ovarian Cysts. Denies: Hx Peritoneal Dialysis Musculoskeletal Medical History: Reports Hx Musculoskeletal Deformity Psychiatric Medical History: Reports: Hx Depression - With stillborn at the time her father had Past Surgical History: Reports: Hx Appendectomy, Hx Section, Hx Dilation and Curettage, Hx Gynecologic Surgery - Left Salpingectomy with ectopic , Hx Oral Surgery - [place] teeth - Immunizations Immunizations up to date: Yes Hx Diphtheria, Pertussis, Tetanus Vaccination: Yes - 2014 Physical Exam - Vital signs Vitals: Pulse Ox 97 04/15/19 18:11 Course - Re-evaluation Re-evalutation: 04/15/19 18:48 Vitals reviewed. Nursing notes reviewed. Patient is somnolent and falling asleep during my conversation with her. She does wake to verbal stimuli. She has pinpoint pupils. She was given 1 mg of Narcan for concern of opiate overdose. patient is on telemetry monitoring. She is tachycardic with a stable blood pressure. She was given IV fluids. 04/15/19 20:35 Patient has remained stable since receiving the Narcan. She has continued to decline that she took any drugs after returning home from her previous visit. At this point she is testing positive for opiates on her drug screen and has had recurrence of her unresponsive state. I am concerned that the packet she ingested earlier was a longer acting opiate that is out lasting the Narcan. at this point patient will be admitted to the hospital for observation to assure no recurrence of unresponsiveness. Her work-up in the emergency room is otherwise unremarkable. She does have a borderline urinary tract infection without symptoms, urine culture has been ordered. Patient's care discussed with Dr. Clay who accepts admission. Laboratory 04/15/19 04/15/19 04/15/19 18:30 18:30 18:30 WBC 13.7 H RBC 4.58 Hgb 13.1 Hct 39.8 MCV 87 MCH 28.5 MCHC 32.8 RDW 12.9 Plt Count 360 Seg Neutrophils % 91.5 H Lymphocytes % 5.6 L Monocytes % 2.4 L Eosinophils % 0.1 Basophils % 0.4 Absolute Neutrophils 12.6 H Absolute Lymphocytes 0.8 Absolute Monocytes 0.3 Absolute Eosinophils 0.0 Absolute Basophils 0.1 Sodium 140.7 Potassium 4.4 Chloride 107 Carbon Dioxide 25 Anion Gap 9 BUN 6 L Creatinine 0.73 Est GFR ( Amer) > 60 Est GFR (Non-Af Amer) > 60 Glucose 158 H Calcium 8.8 Total Bilirubin 0.5 Direct Bilirubin 0.2 Neonat Total Bilirubin Not Reportable Neonat Direct Bilirubin Not Reportable Neonat Indirect Bili Not Reportable AST 16 ALT 17 Alkaline Phosphatase 62 Total Protein 7.8 Albumin 4.1 Serum HCG, Qual NEGATIVE Urine Color Urine Appearance Urine pH Ur Specific [place] Urine Protein Urine Glucose (UA) Urine Ketones Urine Blood Urine Nitrite Urine Bilirubin Urine Urobilinogen Ur Leukocyte Esterase Urine WBC (Auto) Urine RBC (Auto) U Hyaline Cast (Auto) Urine Bacteria (Auto) Squamous Epi Cells Auto Amorphous Sediment Auto Urine Mucus (Auto) Urine Ascorbic Acid Salicylates < 1.0 L Urine Opiates Screen Urine Methadone Screen Acetaminophen < 10 L Ur Barbiturates Screen Ur Phencyclidine Scrn Ur Amphetamines Screen U Benzodiazepines Scrn Urine Cocaine Screen U Marijuana (THC) Screen Serum Alcohol < 10 04/15/19 04/15/19 19:05 19:05 WBC RBC Hgb Hct MCV MCH MCHC RDW Plt Count Seg Neutrophils % Lymphocytes % Monocytes % Eosinophils % Basophils % Absolute Neutrophils Absolute Lymphocytes Absolute Monocytes Absolute Eosinophils Absolute Basophils Sodium Potassium Chloride Carbon Dioxide Anion Gap BUN Creatinine Est GFR ( Amer) Est GFR (Non-Af Amer) Glucose Calcium Total Bilirubin Direct Bilirubin Neonat Total Bilirubin Neonat Direct Bilirubin Neonat Indirect Bili AST ALT Alkaline Phosphatase Total Protein Albumin Serum HCG, Qual Urine Color YELLOW Urine Appearance CLOUDY Urine pH 6.0 Ur Specific [place] 1.015 Urine Protein NEGATIVE Urine Glucose (UA) 150 H Urine Ketones NEGATIVE Urine Blood SMALL H Urine Nitrite NEGATIVE Urine Bilirubin NEGATIVE Urine Urobilinogen 2.0 H Ur Leukocyte Esterase SMALL H Urine WBC (Auto) 13 Urine RBC (Auto) 17 U Hyaline Cast (Auto) 5 Urine Bacteria (Auto) 3+ Squamous Epi Cells Auto 6 Amorphous Sediment Auto TRACE Urine Mucus (Auto) OCC Urine Ascorbic Acid NEGATIVE Salicylates Urine Opiates Screen UNCONFIRMED POSITIVE Urine Methadone Screen NEGATIVE Acetaminophen Ur Barbiturates Screen NEGATIVE Ur Phencyclidine Scrn NEGATIVE Ur Amphetamines Screen NEGATIVE U Benzodiazepines Scrn NEGATIVE Urine Cocaine Screen NEGATIVE U Marijuana (THC) Screen NEGATIVE Serum Alcohol - Vital Signs Vital signs: Temp Pulse Resp BP Pulse Ox 98.2 F 99 21 H 135/88 H 99 04/15/19 19:00 04/15/19 18:25 04/15/19 19:01 04/15/19 19:01 04/15/19 19:01 - Laboratory Result Diagrams: 04/15/19 18:30 04/15/19 18:30 Laboratory results interpreted by me: 04/15/19 04/15/19 04/15/19 18:30 18:30 19:05 WBC 13.7 H Seg Neutrophils % 91.5 H Lymphocytes % 5.6 L Monocytes % 2.4 L Absolute Neutrophils 12.6 H BUN 6 L Glucose 158 H Urine Glucose (UA) 150 H Urine Blood SMALL H Urine Urobilinogen 2.0 H Ur Leukocyte Esterase SMALL H Salicylates < 1.0 L Acetaminophen < 10 L - EKG Interpretation by Me Additional EKG results interpreted by me: 04/15/19 18:49 Interpreted by myself 1819: Sinus tachycardia, rate 104, normal axis, no ectopy, no STEMI Discharge - Discharge Clinical Impression: Accidental overdose Qualifiers: Encounter type: initial encounter Qualified Code(s): T50.901A - Poisoning by unspecified drugs, medicaments and biological substances, accidental (unintentional), initial encounter Condition: Stable Disposition: ADMITTED OBSERVATION Admitting Provider: Obed (Hospitalist) Unit Admitted: Telemetry Referrals: RICHA MENDENHALL PA-C [Primary Care Provider] - Follow up as needed
[2019-04-15 18:52] LABS: ABSOLUTE BASOPHILS # (AUTO) 0.1 10^3/uL (0.0-0.2); ABSOLUTE LYMPHOCYTES (AUTO) 0.8 10^3/uL (0.5-4.7); ABSOLUTE MONOCYTES (AUTO) 0.3 10^3/uL (0.1-1.4); ABSOLUTE NEUT (AUTO) 12.6 10^3/uL (1.7-8.2); BASOPHILS % (AUTO) 0.4 % (0-2); EOSINOPHILS % (AUTO) 0.1 % (0-6); HEMATOCRIT 39.8 % (36.0-47.0); HEMOGLOBIN 13.1 g/dL (12.0-15.5); LYMPHOCYTES % (AUTO) 5.6 % (13-45); MEAN CORPUSCULAR HEMOGLOBIN 28.5 pg (27.0-33.4); MEAN CORPUSCULAR HGB CONC 32.8 g/dL (32.0-36.0); MEAN CORPUSCULAR VOLUME 87 fl (80-97); MONOCYTES % (AUTO) 2.4 % (3-13); PLATELET COUNT 360 10^3/uL (150-450); RED BLOOD COUNT 4.58 10^6/uL (3.72-5.28); RED CELL DISTRIBUTION WIDTH 12.9 % (11.5-14.0); SEGMENTED NEUTROPHILS % (AUTO) 91.5 % (42-78); TOTAL CELLS COUNTED % (AUTO) 100 %; WHITE BLOOD COUNT 13.7 10^3/uL (4.0-10.5)
[2019-04-15 19:07] LABS: ACETAMINOPHEN < 10 ug/mL (10-30); ALANINE AMINOTRANSFERASE 17 U/L (9-52); ALBUMIN 4.1 g/dL (3.5-5.0); ALCOHOL < 10 mg/dL (NONE DETECTED); ALKALINE PHOSPHATASE 62 U/L (38-126); ANION GAP 9 (5-19); ASPARTATE AMINO TRANSFERASE 16 U/L (14-36); BILIRUBIN,DIRECT 0.2 mg/dL (0.0-0.4); BILIRUBIN,TOTAL 0.5 mg/dL (0.2-1.3); BLOOD UREA NITROGEN 6 mg/dL (7-20); CALCIUM 8.8 mg/dL (8.4-10.2); CARBON DIOXIDE 25 mmol/L (22-30); CHLORIDE 107 mmol/L (98-107); GLUCOSE 158 mg/dL (75-110); POTASSIUM 4.4 mmol/L (3.6-5.0); SALICYLATE < 1.0 mg/dL (2.0-20.0); SODIUM 140.7 mmol/L (137-145); TOTAL PROTEIN 7.8 g/dL (6.3-8.2)
[2019-04-15 19:25] LABS: AMORPHOUS SEDIMENT,URINE TRACE /HPF; APPEARANCE,URINE CLOUDY; BILIRUBIN,URINE NEGATIVE (NEGATIVE); COLOR,URINE YELLOW; GLUCOSE, URINE 150 mg/dL (NEGATIVE); KETONES,URINE NEGATIVE (NEGATIVE); LEUKOCYTE ESTERASE,URINE SMALL (NEGATIVE); NITRITE,URINE NEGATIVE (NEGATIVE); PROTEIN,URINE NEGATIVE (NEGATIVE); URINE SPECIFIC GRAVITY 1.015
[2019-04-15 19:43] LABS: URINE AMPHETAMINES SCREEN NEGATIVE; URINE BARBITURATES SCREEN NEGATIVE; URINE BENZODIAZEPINES SCREEN NEGATIVE; URINE COCAINE SCREEN NEGATIVE; URINE MARIJUANA (THC) SCREEN NEGATIVE; URINE METHADONE SCREEN NEGATIVE; URINE PHENCYCLIDINE SCREEN NEGATIVE
[2019-04-15] MEDS ORDERED: MAGNESIUM HYDROXIDE SUSP 30 ML UDCUP PO PRN (21:56)
[2019-04-15] MEDS ORDERED: MAG HYDROX/AL HYDROX/SIMETH SUSP 30 ML UDCUP PO PRN (21:56)
[2019-04-15] MEDS ORDERED: ACETAMINOPHEN 325 MG TABLET PO PRN (22:00)
[2019-04-15] MEDS ORDERED: DEXTROSE 40% GEL 15 GM TUBE PO PRN ×2 (22:01)
[2019-04-15] MEDS ORDERED: DEXTROSE 50%-WATER 25 GM/50 ML DISP.SYRIN IV PRN ×2 (22:01)
[2019-04-15] MEDS ORDERED: GLUCAGON,HUMAN RECOMB 1 MG INJ IM PRN (22:01)
[2019-04-15] MEDS ORDERED: NALOXONE HCL INJ 2 MG/2 ML DISP.SYRIN IV PRN (22:03)
[2019-04-15] MEDS ORDERED: METOPROLOL TARTRATE PF/INJ 5 MG/5 ML SDV IV PRN (22:05)
[2019-04-15] MEDS ORDERED: ONDANSETRON HCL INJ/PF 4 MG/2 ML SDV ONE (22:15)
[2019-04-15] MEDS: ONDANSETRON HCL INJ/PF 4 MG/2 ML SDV IV PRN (22:20)
[2019-04-15] MEDS ORDERED: INSULIN LISPRO 100 UNIT/ML 3 ML VIAL SUBCUT ONE (22:30)
--- NOTE | 2019-04-15 23:46 | ADVANCED CARE ---
- Diagnosis (1) Purposeful non-suicidal drug ingestion Diagnosis Current: Yes (2) Acute opioid intoxication delirium without use disorder Diagnosis Current: Yes (3) Leukocytosis Diagnosis Current: Yes (4) Hyperglycemia Diagnosis Current: Yes (5) Pyuria Diagnosis Current: Yes Attendance: Patient, Amanda Morley and myself Resuscitation Status: Full Code Discussion: After discussion the patient indicates that she wishes to be a full code resuscitation status for her hospital stay in the event of a cardiac or respiratory arrest. Additionally she has named Amanda Morley as her designated surrogate medical decision maker. Care Planning Goals: 1. Patient will be full CODE STATUS for this admission. 2. Amanda Morley is the patient's designated surrogate medical decision-maker. Document(s) Completed: Following information will be entered in the patient's permanent medical record as well as the medical orders for this visit via EMR entry: 1. Patient will be full CODE STATUS for this admission. 2. Amanda Morley is the patient's designated surrogate medical decision-maker. Time Spent: 6 minutes
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
[2019-04-16] MEDS: HEPARIN SOD (PORCINE) 5,000 UNIT/ML 1 ML SYRINGE SUBCUT SCH ×3 (00:19→15:34)
--- NOTE | 2019-04-16 00:22 | EKG REPORT ---
SEVERITY:- BORDERLINE ECG - SINUS TACHYCARDIA PROBABLE LEFT ATRIAL ABNORMALITY : Confirmed by: Manuelito Astudillo 16-Apr-2019 00:21:23
--- NOTE | 2019-04-16 00:26 | RADIOLOGY REPORT (SQ) ---
EXAM DESCRIPTION: CT HEAD WITHOUT IV CONTRAST COMPLETED DATE/TME: 04/15/2019 00:00 CLINICAL HISTORY: 39 years, Female, acute somnolence/unresponsiveness COMPARISON: None. TECHNIQUE: 196 Images stored on PACS. All CT scanners at this facility use dose modulation, iterative reconstruction, and/or weight based dosing when appropriate to reduce radiation dose to as low as reasonably achievable (ALARA). [facility]: Dose Right [facility]: CareDose [facility]: Dose Right [facility]: Teradose 4D [facility]: [employer] LIMITATIONS: None. FINDINGS: The globes are intact. Paranasal sinuses and mastoid air cells are unremarkable. No displaced or depressed skull fracture. No intra or extra-axial hemorrhage. CT is limited for evaluation of acute infarct. No CT evidence for large or territorial acute infarct. No mass. No midline shift IMPRESSION: Negative exam TECHNICAL DOCUMENTATION: Quality ID # [id number]: Final reports with documentation of one or more dose reduction techniques (e.g., Automated exposure control, adjustment of the mA and/or kV according to patient size, use of iterative reconstruction technique) copyright 2011 [employer]- All Rights Reserved
[2019-04-16] MEDS: FAMOTIDINE 20 MG TABLET PO SCH ×2 (00:32→10:24)
[2019-04-16 04:58] LABS: HEMATOCRIT 36.5 % (36.0-47.0); MEAN CORPUSCULAR HEMOGLOBIN 28.4 pg (27.0-33.4); MEAN CORPUSCULAR HGB CONC 32.8 g/dL (32.0-36.0); MEAN CORPUSCULAR VOLUME 87 fl (80-97); PLATELET COUNT 341 10^3/uL (150-450); RED BLOOD COUNT 4.22 10^6/uL (3.72-5.28); WHITE BLOOD COUNT 10.8 10^3/uL (4.0-10.5)
[2019-04-16 05:49] LABS: ANION GAP 9 (5-19); BLOOD UREA NITROGEN 4 mg/dL (7-20); CALCIUM 8.4 mg/dL (8.4-10.2); CARBON DIOXIDE 25 mmol/L (22-30); CHLORIDE 105 mmol/L (98-107); GLUCOSE 95 mg/dL (75-110); POTASSIUM 4.4 mmol/L (3.6-5.0); SODIUM 138.7 mmol/L (137-145)
[2019-04-16] MEDS: ONDANSETRON HCL INJ/PF 4 MG/2 ML SDV IV PRN (08:49)
[2019-04-16] MEDS: INSULIN LISPRO 100 UNIT/ML 3 ML VIAL SUBCUT SCH ×3 (08:56→17:14)
[2019-04-16] MEDS ORDERED: DOCUSATE SODIUM 100 MG CAPSULE PO SCH (10:00)
[2019-04-16 16:55] VITALS: BP 108/62
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
== END 2019-04-16 17:27 | disposition home or self-care (01) ==
LOC: ER 18:07 → EH 20:57 → 5 22:59
PROVIDERS: ADMIT Emergency Medicine; ATTEND Emergency Medicine
DX: T50.902A Poisoning by unspecified drugs, medicaments and biological substances, intentional self-harm, initial encounter (principal); F11.921 Opioid use, unspecified with intoxication delirium; N39.0 Urinary tract infection, site not specified; R73.9 Hyperglycemia, unspecified; Z86.711 Personal history of pulmonary embolism
CPT/HCPCS: 93005; 36415 ×2; 87086; 82962; 80307 ×4; 83735; 84443; 84703; 85025; 85027; 80048; 80053; 81001; 83036; 70450; 93010; J3490 ×3; J1644; J2405 ×2; J2310; J7030; G0378

== ENCOUNTER 2019-07-18 03:07 | Emergency (ER) | payer MEDICAID ==
[2019-07-18 03:12] VITALS: BP 139/77
== END 2019-07-18 05:25 | disposition left against medical advice (07) ==
LOC: ER 03:07
DX: Z53.21 Procedure and treatment not carried out due to patient leaving prior to being seen by health care provider (principal)

== ENCOUNTER 2019-09-24 11:19 | Emergency (ER) | payer MEDICAID ==
[2019-09-24 11:24] VITALS: BP 140/64
[2019-09-24] MEDS ORDERED: LORATADINE 10 MG TABLET PO ONE (11:48)
[2019-09-24] MEDS ORDERED: PSEUDOEPHEDRINE HCL 30 MG TABLET PO ONE (11:48)
[2019-09-24] MEDS ORDERED: GUAIFENESIN 600 MG TABLET.SA PO ONE (11:48)
[2019-09-24] MEDS ORDERED: IBUPROFEN 600 MG TABLET PO ONE (11:48)
--- NOTE | 2019-09-24 11:48 | ER Document Report ---
ED Respiratory Problem - General Chief Complaint: Cold Symptoms Stated Complaint: HEADACHE Time Seen by Provider: 09/24/19 11:42 Primary Care Provider: RICHA MENDENHALL PA-C [Primary Care Provider] - Follow up as needed Mode of Arrival: Ambulatory Information source: Patient Notes: 39-year-old female presents to ED for cough congestion runny nose sore throat headache pain in the ears and body ache for a day and a half. Patient is alert oriented respirations regular nonlabored speaking in full sentences. Lungs are clear to auscultation. She does have runny nose and congestion. TRAVEL OUTSIDE OF THE [place] IN LAST 30 DAYS: No - HPI Patient complains to provider of: Cough Onset: Yesterday Duration: Continuous Initiating Event: URI Quality of pain: Achy Severity: Mild Pain Level: 1 Cough: Nonproductive Sputum amount: None Associated symptoms: Fever, Headache, PND, Runny nose, Sinus pain/pressure, Sore Throat Similar symptoms previously: Yes Recently seen / treated by doctor: No - Related Data Allergies/Adverse Reactions: oxycodone HCl [From Percocet] Allergy (Intermediate, Verified 09/24/19 11:36) Hives Past Medical History - General Information source: Patient - Social History Smoking Status: Never Smoker Frequency of alcohol use: None Drug Abuse: None Lives with: Family Family History: Arthritis, CAD, CVA, DM, Hyperlipidemia, Hypertension, Malignancy, Thyroid Disfunction Patient has suicidal ideation: No Patient has homicidal ideation: No - Past Medical History Cardiac Medical History: Reports: Hx Pulmonary Embolism - When Pulmonary Medical History: Reports: Hx Bronchitis, Hx Pneumonia EENT Medical History: Reports: None Neurological Medical History: Reports: Hx Migraine. Denies: Hx Seizures Endocrine Medical History: Reports: None Renal/ Medical History: Reports: Hx Ectopic - 3, Hx Ovarian Cysts Malignancy Medical History: Reports: None GI Medical History: Reports: None Musculoskeletal Medical History: Reports Hx Musculoskeletal Deformity Skin Medical History: Reports None Psychiatric Medical History: Reports: Hx Depression - With stillborn at the time her father had Traumatic Medical History: Reports: None Infectious Medical History: Reports: None Past Surgical History: Reports: Hx Appendectomy, Hx Section, Hx Dilation and Curettage, Hx Gynecologic Surgery - Left Salpingectomy with ectopic , Hx Oral Surgery - [place] teeth, Hx Tubal Ligation, Other - Left salpingectomy for ectopic - Immunizations Immunizations up to date: Yes Hx Diphtheria, Pertussis, Tetanus Vaccination: Yes - 2014 Review of Systems - Review of Systems Constitutional: Fever, Recent illness EENT: Nose pain, Nose congestion, Nose discharge, Sinus pressure, Sinus discharge, Throat pain Cardiovascular: No symptoms reported Respiratory: Cough Gastrointestinal: No symptoms reported Genitourinary: No symptoms reported Female Genitourinary: No symptoms reported Musculoskeletal: No symptoms reported Skin: No symptoms reported Hematologic/Lymphatic: No symptoms reported Neurological/Psychological: No symptoms reported -: Yes All other systems reviewed and negative Physical Exam - Vital signs Vitals: Temp Pulse Resp BP Pulse Ox 98.8 F 72 16 140/64 H 98 09/24/19 11:23 09/24/19 11:23 09/24/19 11:23 09/24/19 11:23 09/24/19 11:23 Interpretation: Normal - General General appearance: Appears well, Alert - HEENT Head: Normocephalic, Atraumatic Eyes: Normal Pupils: PERRL Ears: Normal External canal: Normal Tympanic membrane: Normal Sinus: Normal Nasal: Purulent discharge, Swelling Mouth/Lips: Normal Mucous membranes: Normal Pharynx: Post nasal drainage Neck: Normal - Respiratory Respiratory status: No respiratory distress Chest status: Nontender Breath sounds: Nonproductive cough Chest palpation: Normal - Cardiovascular Rhythm: Regular Heart sounds: Normal auscultation Murmur: No - Abdominal Inspection: Normal Distension: No distension Bowel sounds: Normal Tenderness: Nontender Organomegaly: No organomegaly - Back Back: Normal, Nontender - Extremities General upper extremity: Normal inspection, Nontender, Normal color, Normal ROM, Normal temperature General lower extremity: Normal inspection, Nontender, Normal color, Normal ROM, Normal temperature, Normal weight bearing. No: Stevie's sign - Neurological Neuro grossly intact: Yes Cognition: Normal Orientation: AAOx4 [place] Coma Scale Eye Opening: Spontaneous [place] Coma Scale Verbal: Oriented [place] Coma Scale Motor: Obeys Commands [place] Coma Scale Total: 15 Speech: Normal Motor strength normal: LUE, RUE, LLE, RLE Sensory: Normal - Psychological Associated symptoms: Normal affect, Normal mood - Skin Skin Temperature: Warm Skin Moisture: Dry Skin Color: Normal Course - Re-evaluation Re-evalutation: 09/24/19 11:55 After performing a Medical Screening Examination, I estimate there is LOW risk for ACUTE CORONARY SYNDROME, RESPIRATORY FAILURE, SEPSIS OR MENINGITIS, thus I consider the discharge disposition reasonable. I have reevaluated this patient multiple times and no significant life threatening changes are noted. The patient and I have discussed the diagnosis and risks, and we agree with discharging home with close follow-up. We also discussed returning to the Emergency Department immediately if new or worsening symptoms occur. We have discussed the symptoms which are most concerning (e.g., changing or worsening pain, trouble swallowing or breathing, neck stiffness, fever) that necessitate immediate return. - Vital Signs Vital signs: Temp Pulse Resp BP Pulse Ox 98.8 F 72 16 140/64 H 98 09/24/19 11:36 09/24/19 11:23 09/24/19 11:36 09/24/19 11:23 09/24/19 11:36 Discharge - Discharge Clinical Impression: URI (upper respiratory infection) Qualifiers: URI type: unspecified viral URI Qualified Code(s): J06.9 - Acute upper respiratory infection, unspecified Condition: Stable Disposition: HOME, SELF-CARE Additional Instructions: UPPER RESPIRATORY ILLNESS: You have a viral infection of the respiratory passages -- a "cold." This common infection causes nasal congestion, drainage, and often sore throat and cough. It is highly contagious. The disease usually lasts about 10 to 14 days. There is no "cure" for the viral infection -- it must run its course. If there is a complication, such as bacterial infection in the nose, sinuses, middle ear, or bronchial tubes, antibiotics may be required. The antibiotics won't affect the virus. Drink plenty of fluids. A humidifier may help. An expectorant medication or decongestant may make you more comfortable. Use acetaminophen or ibuprofen for fever or aches. See the doctor if fever persists over two days, if there is any significant worsening of your symptoms, or if you simply fail to improve as expected. You have been treated with Claritin 10 mg, Mucinex 600 mg, Sudafed 30 mg, and ibuprofen 600 mg in the emergency room. These are all cwot-jcd-pxcfpoq medications that you can go to the drugstore and by. You will have to ask the pharmacist for the Sudafed. You can also use close Flonase which is kawn-pql-eyslivr. 1 spray each nostril twice a day. You can also use salt soda solution gargles to remove the postnasal drip from the back your throat. You can also use Chloraseptic spray for your sore throat. These are all ibvb-mbb-wyulgaz medications and you can use them to improve your symptoms. These follow-up with your primary doctor in the next 3 to 5 days if you are not better. These colds can take 2 to 3 weeks to improve. USE OF ACETAMINOPHEN (Tylenol): Acetaminophen may be taken for pain relief or fever control. It's much safer than aspirin, offering a wider range of "safe" dosages. It is safe during . Some brand names are Tylenol, Panadol, Datril, Anacin 3, Tempra, and Liquiprin. Acetaminophen can be repeated every four hours. The following are maximum recommended dosages: >89 pounds or adults 650 mg to 900 mg Acetaminophen can be repeated every four hours. Maximum dose not to exceed 4000 mg a day. FOLLOW-UP CARE: If you have been referred to a physician for follow-up care, call the physicians office for an appointment as you were instructed or within the next two days. If you experience worsening or a significant change in your symptoms, notify the physician immediately or return to the Emergency Department at any time for re-evaluation. Forms: Elevated Blood Pressure Referrals: RICHA MENDENHALL PA-C [Primary Care Provider] - Follow up as needed
== END 2019-09-24 12:11 | disposition home or self-care (01) ==
LOC: ER 11:19
DX: J06.9 Acute upper respiratory infection, unspecified (principal); R51 Headache; M79.10 Myalgia, unspecified site; Z88.6 Allergy status to analgesic agent; Z98.51 Tubal ligation status
CPT/HCPCS: 99283; J3490 ×3

== ENCOUNTER 2019-09-29 00:05 | Emergency (ER) | payer MEDICAID ==
[2019-09-29] MEDS ORDERED: IBUPROFEN 600 MG TABLET PO ONE (00:32)
[2019-09-29] MEDS ORDERED: NORMAL SALINE 1000 ML 1,000 ML IV ONE (03:26)
[2019-09-29] MEDS ORDERED: KETOROLAC TROMETHAMINE INJ/PF 30 MG/1 ML SDV IV ONE (03:26)
[2019-09-29] MEDS ORDERED: METOCLOPRAMIDE HCL INJ/PF 10 MG/2 ML SDV IV ONE (03:26)
[2019-09-29] MEDS ORDERED: DIPHENHYDRAMINE HCL 50 MG/ML VIAL IV ONE (03:26)
--- NOTE | 2019-09-29 04:41 | ER Document Report ---
ED General - General Chief Complaint: Headache Stated Complaint: HEADACHE/NAUSEA/SHAKING Time Seen by Provider: 09/29/19 02:59 Primary Care Provider: RICHA MENDENHALL PA-C [Primary Care Provider] - Follow up as needed Notes: 39-year-old female presents emergency department complaining of a left-sided migraine headache associated with nausea and shaking all over her body. Patient states that it started on Wednesday and feels similar to one other headache that she has had in the past. States that approximately a week ago she was diagnosed with postconcussive headaches at [facility] and prescribed "blue pills" but was unable to get them filled thus far. Patient states that this pain is more intense than usual and is usually diffuse headache when is her postconcussive headaches, states that her migraines are usu ally posterior and tension type. States that this 1 is currently left-sided. States that she has had one headache similar to this in the past. It is not different than that other headache. That other headache did happen since her concussion back in May. She also admits to feeling somewhat lightheaded with standing. Denies blurry vision, numbness, tingling, weakness. Denies any fevers, admits occasional sweating. Denies any neck pain. Denies taking any blood thinners. Denies any recent head trauma. TRAVEL OUTSIDE OF THE [place] IN LAST 30 DAYS: No - Related Data Allergies/Adverse Reactions: oxycodone HCl [From Percocet] Allergy (Intermediate, Verified 09/24/19 11:36) Hives Past Medical History - General Information source: Patient - Social History Smoking Status: Never Smoker Frequency of alcohol use: None Drug Abuse: None Family History: Arthritis, CAD, CVA, DM, Hyperlipidemia, Hypertension, Malignancy, Thyroid Disfunction Patient has suicidal ideation: No Patient has homicidal ideation: No - Past Medical History Cardiac Medical History: Reports: Hx Pulmonary Embolism - When Denies: Hx Coronary Artery Disease, Hx Hypertension Pulmonary Medical History: Reports: Hx Bronchitis, Hx Pneumonia Denies: Hx Asthma, Hx COPD Neurological Medical History: Reports: Hx Migraine. Denies: Hx Seizures Endocrine Medical History: Denies: Hx Diabetes Mellitus Type 1, Hx Diabetes Mellitus Type 2, Hx Hyperthyroidism, Hx Hypothyroidism Renal/ Medical History: Reports: Hx Ectopic - 3, Hx Ovarian Cysts. Denies: Hx Peritoneal Dialysis GI Medical History: Denies: Hx Cirrhosis, Hx Crohn's Disease, Hx Hepatitis, Hx Ulcerative Colitis Musculoskeletal Medical History: Denies Hx Arthritis, Denies Hx Fibromyalgia, Reports Hx Musculoskeletal Deformity Skin Medical History: Denies Hx Eczema, Denies Hx Psoriasis Psychiatric Medical History: Reports: Hx Depression - With stillborn at the time her father had Infectious Medical History: Denies: Hx Hepatitis Past Surgical History: Reports: Hx Appendectomy, Hx Section, Hx Dilation and Curettage, Hx Gynecologic Surgery - Left Salpingectomy with ectopic , Hx Oral Surgery - [place] teeth, Hx Tubal Ligation, Other - Left salpingectomy for ectopic - Immunizations Immunizations up to date: Yes Hx Diphtheria, Pertussis, Tetanus Vaccination: Yes - 2014 Review of Systems - Review of Systems Constitutional: See HPI, Diaphoresis EENT: No symptoms reported Cardiovascular: See HPI, Lightheaded Respiratory: No symptoms reported Gastrointestinal: See HPI, Nausea. denies: Abdominal pain, Diarrhea, Vomiting Neurological/Psychological: See HPI -: Yes All other systems reviewed and negative Physical Exam - Vital signs Vitals: Temp Pulse Resp BP Pulse Ox 97.7 F 72 20 111/87 H 99 09/29/19 00:22 09/29/19 00:22 09/29/19 00:22 09/29/19 00:22 09/29/19 00:22 Interpretation: Normal Notes: GENERAL: Laying in bed, lights off, photophobic. HEAD: Normocephalic, atraumatic EYES: Pupils equal, round and reactive to light, extraocular movements intact. Red reflex intact. ENT: Oral mucosa moist, tongue midline. Turbinate edema on the right side, clear rhinorrhea, TMs intact without bulging, injection or retraction. NECK: Full range of motion, supple, trachea midline. LUNGS: Clear to auscultation bilaterally, no wheezes, rales or rhonchi, no respiratory distress. HEART: Regular rate and rhythm, no murmurs, gallops, rubs. ABDOMEN: Soft, nontender, nondistended, bowel sounds present in all 4 quadrants. EXTREMITIES: Moves all 4 extremities spontaneously, no edema, radial and dorsalis pedis pulses 2/4 bilaterally. No cyanosis. NEUROLOGICAL: Alert and oriented x3, normal speech, cranial nerves II through XII grossly intact, biceps and patellar DTRs 2+ bilaterally. 5 out of 5 muscle strength. Izfnsu-gf-khka and uutc-hi-vpdh testing intact. PSYCH: Normal mood, normal affect. SKIN: Warm, Dry, normal turgor, no rashes or lesions noted. Course - Re-evaluation Re-evalutation: 09/29/19 04:40 No red flag symptoms. Treat with Toradol, Reglan and Benadryl. No indication for CT scan. Discharged home when pain reduced by 50%. 09/29/19 05:07 Headache is significantly improved, agreeable to discharge to home. Discharged. - Vital Signs Vital signs: Temp Pulse Resp BP Pulse Ox 97.7 F 72 20 111/87 H 99 09/29/19 00:26 09/29/19 00:26 09/29/19 00:26 09/29/19 00:26 09/29/19 00:26 Discharge - Discharge Clinical Impression: Left-sided headache Condition: Stable Disposition: HOME, SELF-CARE Additional Instructions: Headache The physician does not feel that the headache you are experiencing has a serious underlying cause. Most headaches are due to emotional stress, with resultant muscle tension (tension headache). Occasionally, headaches are secondary to changes in the blood vessels of the scalp (vascular headache and migraine headache). Sometimes, a headache is the first symptom of another developing illness, such as a viral infection. You have no evidence of stroke, bleeding, meningitis, or other serious cause of your headache. The treatment of headaches varies with the severity and cause of the pain. Not all headaches need pain shots. In fact, there is evidence that using narcotics for headaches may make them worse in the long run. The physician will determine the therapy that's in your best interest. If you develop a fever, if the headache is different from any you've previously experienced, or if the headache progressively worsens, then call your physician at once or go to the emergency room. Referrals: RICHA MENDENHALL PA-C [Primary Care Provider] - Follow up as needed
[2019-09-29 05:28] VITALS: BP 109/54
== END 2019-09-29 05:28 | disposition home or self-care (01) ==
LOC: ER 00:05
DX: R51 Headache (principal); R11.0 Nausea; R25.1 Tremor, unspecified; R42 Dizziness and giddiness; Z88.5 Allergy status to narcotic agent
CPT/HCPCS: 99283; 96361; 96374; 96375; J1200; J3490; J1885; J2765; J7030

== ENCOUNTER 2019-12-02 16:23 | Emergency (ER) | payer MEDICAID ==
--- NOTE | 2019-12-02 16:45 | ER Document Report ---
ED Medical Screen (RME) - General Chief Complaint: Abdominal Pain Stated Complaint: ABDOMINAL PAIN Time Seen by Provider: 12/02/19 16:40 Primary Care Provider: RICHA MENDENHALL PA-C [Primary Care Provider] - Follow up as needed Mode of Arrival: Ambulatory Information source: Patient Notes: 39-year-old female presented to ED for complaint of abdominal pain for day and a half now the pain is much worse on the left lower quadrant/pelvic area. She states she is in the process of artificial insemination. She states she just had the HSG test done and they told her that was the best time to start trying to get after that. She states this test was done on 22 November. She states she is taking all the medicine they told her to take for the week after the dye was inserted she has completed that the pain started yesterday. Is alert oriented respirations regular nonlabored speaking in full sentences. Denies any vaginal bleeding or vomiting but she does have some nausea. She has had a history of ectopic pregnancies I have greeted and performed a rapid initial assessment of this patient. A comprehensive ED assessment and evaluation of the patient, analysis of test results and completion of medical decision making process will be conducted by an additional ED providers. TRAVEL OUTSIDE OF THE [place] IN LAST 30 DAYS: No - Related Data Allergies/Adverse Reactions: oxycodone HCl [From Percocet] Allergy (Intermediate, Verified 09/24/19 11:36) Hives Past Medical History - Past Medical History Cardiac Medical History: Reports: Hx Pulmonary Embolism - When Denies: Hx Coronary Artery Disease, Hx Hypertension Pulmonary Medical History: Reports: Hx Bronchitis, Hx Pneumonia Denies: Hx Asthma, Hx COPD Neurological Medical History: Reports: Hx Migraine. Denies: Hx Seizures Endocrine Medical History: Denies: Hx Diabetes Mellitus Type 1, Hx Diabetes Mellitus Type 2, Hx Hyperthyroidism, Hx Hypothyroidism Renal/ Medical History: Reports: Hx Ectopic - 3, Hx Ovarian Cysts. Denies: Hx Peritoneal Dialysis GI Medical History: Denies: Hx Cirrhosis, Hx Crohn's Disease, Hx Hepatitis, Hx Ulcerative Colitis Musculoskeltal Medical History: Denies Hx Arthritis, Denies Hx Fibromyalgia, Reports Hx Musculoskeletal Deformity Skin Medical History: Denies Hx Eczema, Denies Hx Psoriasis Psychiatric Medical History: Reports: Hx Depression - With stillborn at the time her father had Infectious Medical History: Denies: Hx Hepatitis Past Surgical History: Reports: Hx Appendectomy, Hx Section, Hx Dilation and Curettage, Hx Gynecologic Surgery - Left Salpingectomy with ectopic , Hx Oral Surgery - [place] teeth, Hx Tubal Ligation, Other - Left salpingectomy for ectopic - Immunizations Immunizations up to date: Yes Hx Diphtheria, Pertussis, Tetanus Vaccination: Yes - 2014 Physical Exam - Vital signs Vitals: Temp Pulse Resp BP Pulse Ox 98.1 F 78 18 122/78 100 12/02/19 16:35 12/02/19 16:35 12/02/19 16:35 12/02/19 16:35 12/02/19 16:35 Course - Vital Signs Vital signs: Temp Pulse Resp BP Pulse Ox 98.1 F 78 18 122/78 100 12/02/19 16:35 12/02/19 16:35 12/02/19 16:35 12/02/19 16:35 12/02/19 16:35 Doctor's Discharge - Discharge Referrals: RICHA MENDENHALL PA-C [Primary Care Provider] - Follow up as needed
[2019-12-02] MEDS ORDERED: ONDANSETRON 4 MG TAB.RAPDIS PO ONE (16:47)
[2019-12-02] MEDS ORDERED: ACETAMINOPHEN 325 MG TABLET PO ONE (16:47)
[2019-12-02 17:05] LABS: ABSOLUTE BASOPHILS # (AUTO) 0.1 10^3/uL (0.0-0.2); ABSOLUTE EOSINOPHILS # (AUTO) 0.1 10^3/uL (0.0-0.6); ABSOLUTE LYMPHOCYTES (AUTO) 2.4 10^3/uL (0.5-4.7); ABSOLUTE MONOCYTES (AUTO) 0.5 10^3/uL (0.1-1.4); ABSOLUTE NEUT (AUTO) 3.9 10^3/uL (1.7-8.2); BASOPHILS % (AUTO) 1.2 % (0-2); EOSINOPHILS % (AUTO) 1.2 % (0-6); HEMATOCRIT 42.3 % (36.0-47.0); HEMOGLOBIN 14.4 g/dL (12.0-15.5); LYMPHOCYTES % (AUTO) 34.5 % (13-45); MEAN CORPUSCULAR HEMOGLOBIN 29.4 pg (27.0-33.4); MEAN CORPUSCULAR HGB CONC 34.1 g/dL (32.0-36.0); MEAN CORPUSCULAR VOLUME 86 fl (80-97); MONOCYTES % (AUTO) 7.5 % (3-13); PLATELET COUNT 336 10^3/uL (150-450); RED BLOOD COUNT 4.91 10^6/uL (3.72-5.28); RED CELL DISTRIBUTION WIDTH 13.4 % (11.5-14.0); SEGMENTED NEUTROPHILS % (AUTO) 55.6 % (42-78); TOTAL CELLS COUNTED % (AUTO) 100 %; WHITE BLOOD COUNT 6.9 10^3/uL (4.0-10.5)
[2019-12-02 17:22] LABS: ALBUMIN 4.2 g/dL (3.5-5.0); ALKALINE PHOSPHATASE 72 U/L (38-126); ANION GAP 11 (5-19); ASPARTATE AMINO TRANSFERASE 20 U/L (14-36); BILIRUBIN,DIRECT 0.3 mg/dL (0.0-0.4); BILIRUBIN,TOTAL 0.5 mg/dL (0.2-1.3); BLOOD UREA NITROGEN 6 mg/dL (7-20); CALCIUM 9.4 mg/dL (8.4-10.2); CARBON DIOXIDE 22 mmol/L (22-30); CHLORIDE 105 mmol/L (98-107); GLUCOSE 101 mg/dL (75-110); POTASSIUM 4.4 mmol/L (3.6-5.0); TOTAL PROTEIN 8.6 g/dL (6.3-8.2)
[2019-12-02] MEDS ORDERED: HYDROMORPHONE HCL INJ/PF 2 MG/ML AMPULE IV ONE (17:45)
--- NOTE | 2019-12-02 17:47 | RADIOLOGY REPORT (SQ) ---
EXAM DESCRIPTION: U/S NON OB PEL W/DOPPLER COMPLETED DATE/TIME: 12/02/2019 5:30 pm REASON FOR STUDY: Left pelvic/abdominal pain COMPARISON: 06/03/2016. TECHNIQUE: Dynamic and static grayscale images acquired of the pelvis via transabdominal approach an d recorded on PACS. Additional selected color Doppler and spectral images recorded. LIMITATIONS: None. FINDINGS: UTERUS: Contour normal. No mass. ENDOMETRIAL STRIPE: No focal or generalized thickening. No masses. CERVIX: No nabothian cysts. RIGHT OVARY AND DOPPLER: Normal size. 2.1 cm cyst with heterogenous internal echoes. Normal arterial vascular flow without evidence for torsion. LEFT OVARY AND DOPPLER: Normal size. No worrisome masses. Normal arterial vascular flow without evide nce for torsion. FREE FLUID: None noted. OTHER: No other significant finding. MEASUREMENTS: UTERUS: 4.3 x 5.4 x 7.5 cm. ENDOMETRIAL STRIPE: 6.1 mm. RIGHT OVARY: 1.8 x 2.0 x 3.0 cm. LEFT OVARY: 2.0 x 3.1 x 3.3 cm. IMPRESSION: HETEROGENOUS CYST IN THE RIGHT OVARY, POSSIBLY HEMORRHAGIC. MAY CONSIDER FOLLOW-UP ULTR ASOUND 6 -12 WEEKS. OTHERWISE UNREMARKABLE PELVIC ULTRASOUND BY TRANSABDOMINAL TECHNIQUE. COMMENT: Followup of asymptomatic indeterminate ovarian cysts detected by ultrasound in PREMENOPAUS [place] patients Cyst with findings suggestive of, but not classic for, hemorrhagic cyst, endometrioma or dermoid: *6-12 week followup US; if not a resolving hemorrhagic cyst, continued US or MRI followup; if endomet rioma or dermoid still not confirmed, consider surgical consultation Single thin septation or focal wall calcification: *Same as for benign cyst, based on size Multiple septations: *Consider surgical consultation Nodule in a cyst: *No blood flow in nodule: MRI or surgical consultation *Blood flow in nodule: surgical consultation Note: If cyst is clinically symptomatic or otherwise concerning, other followup may be warranted. Based on recommendations of the Society for Radiologists in Ultrasound Consensus Conference Statement 2010 on management of asymptomatic ovarian and other adnexal cysts imaged at ultrasound. TECHNICAL DOCUMENTATION: JOB ID: [id number] [employer]- All Rights Reserved Rev-03/04 Reading location - IP/workstation name: [email or web address]
[2019-12-02 17:49] LABS: APPEARANCE,URINE CLEAR; BILIRUBIN,URINE NEGATIVE (NEGATIVE); COLOR,URINE YELLOW; GLUCOSE, URINE NEGATIVE (NEGATIVE); KETONES,URINE NEGATIVE (NEGATIVE); PROTEIN,URINE NEGATIVE (NEGATIVE); URINE SPECIFIC GRAVITY 1.009; UROBILINOGEN,URINE NEGATIVE mg/dL (<2.0)
--- NOTE | 2019-12-02 17:49 | ER Document Report ---
ED General - General Chief Complaint: Pelvic Pain Stated Complaint: ABDOMINAL PAIN Time Seen by Provider: 12/02/19 16:40 Primary Care Provider: RICHA MENDENHALL PA-C [Primary Care Provider] - Follow up as needed Mode of Arrival: Ambulatory Notes: Patient is a 39-year-old -Malagasy female with a past medical history of 3 prior ectopic pregnancies, status post right adnexal surgical removal who is currently undergoing artificial insemination who reports to the emergency department today with a chief complaint of left lower pelvic pain that began a day and a half ago. She states that she is seeing a specialist in [facility]. She states that she had an HSG test done on the fifth of this month. She states she was told to have intercourse immediately after and the several days following an attempt to conceive. She states over the past day she started having some left upper and left lower quadrant discomfort. She states it is now localized to the left pelvic region. She states this feels very similar to her prior ectopic pregnancies. She denies any vaginal bleeding vomiting or diarrhea. Denies fever. TRAVEL OUTSIDE OF THE [place] IN LAST 30 DAYS: No - Related Data Allergies/Adverse Reactions: oxycodone HCl [From Percocet] Allergy (Intermediate, Verified 12/02/19 16:46) Hives Past Medical History - General Information source: Patient - Social History Smoking Status: Never Smoker Chew tobacco use (# tins/day): No Frequency of alcohol use: None Drug Abuse: None Family History: Arthritis, CAD, CVA, DM, Hyperlipidemia, Hypertension, Malignancy, Thyroid Disfunction Patient has suicidal ideation: No Patient has homicidal ideation: No - Past Medical History Cardiac Medical History: Reports: Hx Pulmonary Embolism - When Denies: Hx Coronary Artery Disease, Hx Hypertension Pulmonary Medical History: Reports: Hx Bronchitis, Hx Pneumonia Denies: Hx Asthma, Hx COPD Neurological Medical History: Reports: Hx Migraine. Denies: Hx Seizures Endocrine Medical History: Denies: Hx Diabetes Mellitus Type 1, Hx Diabetes Mellitus Type 2, Hx Hyperthyroidism, Hx Hypothyroidism Renal/ Medical History: Reports: Hx Ectopic - 3, Hx Ovarian Cysts. Denies: Hx Peritoneal Dialysis GI Medical History: Denies: Hx Cirrhosis, Hx Crohn's Disease, Hx Hepatitis, Hx Ulcerative Colitis Musculoskeletal Medical History: Denies Hx Arthritis, Denies Hx Fibromyalgia, Reports Hx Musculoskeletal Deformity Skin Medical History: Denies Hx Eczema, Denies Hx Psoriasis Psychiatric Medical History: Reports: Hx Depression - With stillborn at the time her father had Infectious Medical History: Denies: Hx Hepatitis Past Surgical History: Reports: Hx Appendectomy, Hx Section, Hx Dilation and Curettage, Hx Gynecologic Surgery - Left Salpingectomy with ectopic , Hx Oral Surgery - [place] teeth, Hx Tubal Ligation, Other - Left sa lpingectomy for ectopic - Immunizations Immunizations up to date: Yes Hx Diphtheria, Pertussis, Tetanus Vaccination: Yes - 2014 Review of Systems - Review of Systems Gastrointestinal: Abdominal pain Female Genitourinary: denies: Vaginal discharge -: Yes All other systems reviewed and negative Physical Exam - Vital signs Vitals: Temp Pulse Resp BP Pulse Ox 98.1 F 78 18 122/78 100 12/02/19 16:35 12/02/19 16:35 12/02/19 16:35 12/02/19 16:35 12/02/19 16:35 - General General appearance: Appears well, Alert In distress: Moderate - Respiratory Respiratory status: No respiratory distress Chest status: Nontender Breath sounds: Normal Chest palpation: Normal - Cardiovascular Rhythm: Regular Heart sounds: Normal auscultation - Abdominal Inspection: Normal Distension: No distension Bowel sounds: Normal Tenderness: Tender - Left suprapubic region - Genitourinary External exam: Normal Speculum exam: Normal, Cervix closed. No: Vaginal discharge, Lesions, Products of conception Vaginal bleeding: None Notes: Chaperoned by female nurse - Neurological Neuro grossly intact: Yes Cognition: Normal Orientation: AAOx4 Sumeet Coma Scale Eye Opening: Spontaneous Sumeet Coma Scale Verbal: Oriented Sumeet Coma Scale Motor: Obeys Commands Sumeet Coma Scale Total: 15 Speech: Normal - Psychological Associated symptoms: Restlessness, Tearful - Skin Skin Temperature: Warm Skin Moisture: Dry Skin Color: Normal Course - Re-evaluation Re-evalutation: 12/02/19 18:[address] 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 Discussed the patient's history, p resent findings and condition. She advised no further intervention or monitoring at this time. States the patient is stable for discharge with pain medicine and strict indications for return. The patient has had 3 prior ectopics, she is well versed in these indications however we did revisit them at length. She sees [facility], she states that she has already sent a message to her doctor regarding what is happening. They have a web-based portal that she is able to talk [id number] with them. She will continue to follow- up with them for further management. She will return here or any ER immediately with any new, persistent or worsening symptoms. - Vital Signs Vital signs: Temp Pulse Resp BP Pulse Ox 98.1 F 78 18 122/78 100 12/02/19 16:35 12/02/19 16:35 12/02/19 16:35 12/02/19 16:35 12/02/19 16:35 - Laboratory Result Diagrams: 12/02/19 16:57 12/02/19 16:57 Laboratory results interpreted by me: 12/02/19 12/02/19 16:57 17:25 BUN 6 L Total Protein 8.6 H Leukocyte Esterase Rfl TRACE H Discharge - Discharge Clinical Impression: Pelvic pain Condition: Stable Disposition: HOME, SELF-CARE Instructions: Pelvic Pain ([facility]) Additional Instructions: Follow-up with your PERSONAL TRAINER as soon as possible. Return here or any ER immediately with any new, persistent or worsening symptoms. Prescriptions: Hydrocodone/Acetaminophen [Franklin 10-325 Tablet] 1 each PO Q6 PRN #12 tablet PRN Reason: Referrals: RICHA MENDENHALL PA-C [Primary Care Provider] - Follow up as needed
[2019-12-02] MEDS ORDERED: FENTANYL CITRATE INJ/PF 100 MCG/2 ML AMPUL IV ONE (19:17)
[2019-12-02 19:46] VITALS: BP 129/73
== END 2019-12-02 19:45 | disposition home or self-care (01) ==
LOC: ER 16:23
DX: R10.2 Pelvic and perineal pain (principal); Z87.59 Personal history of other complications of pregnancy, childbirth and the puerperium; Z88.6 Allergy status to analgesic agent; Z88.5 Allergy status to narcotic agent
CPT/HCPCS: 99284; 96374; 96375; 36415; 87086; 84702; 84703; 85025; 87088; 80053; 81001; 87186; 76856; 93976; J3490; S0119; J3010; J1170

== ENCOUNTER 2020-03-31 14:04 | Emergency (ER) | payer MEDICAID ==
[2020-03-31 15:13] LABS: APPEARANCE,URINE SLIGHTLY-CLOUDY; BILIRUBIN,URINE NEGATIVE (NEGATIVE); COLOR,URINE YELLOW; GLUCOSE, URINE NEGATIVE (NEGATIVE); KETONES,URINE NEGATIVE (NEGATIVE); LEUKOCYTE ESTERASE,URINE NEGATIVE (NEGATIVE); NITRITE,URINE NEGATIVE (NEGATIVE); PROTEIN,URINE NEGATIVE (NEGATIVE); URINE SPECIFIC GRAVITY 1.014; UROBILINOGEN,URINE NEGATIVE mg/dL (<2.0)
[2020-03-31 15:14] LABS: ABSOLUTE LYMPHOCYTES (AUTO) 1.9 10^3/uL (0.5-4.7); ABSOLUTE MONOCYTES (AUTO) 0.3 10^3/uL (0.1-1.4); ABSOLUTE NEUT (AUTO) 1.9 10^3/uL (1.7-8.2); BASOPHILS % (AUTO) 1.1 % (0-2); EOSINOPHILS % (AUTO) 1.1 % (0-6); HEMATOCRIT 40.1 % (36.0-47.0); HEMOGLOBIN 13.3 g/dL (12.0-15.5); LYMPHOCYTES % (AUTO) 44.5 % (13-45); MEAN CORPUSCULAR HEMOGLOBIN 28.9 pg (27.0-33.4); MEAN CORPUSCULAR HGB CONC 33.2 g/dL (32.0-36.0); MEAN CORPUSCULAR VOLUME 87 fl (80-97); MONOCYTES % (AUTO) 7.2 % (3-13); PLATELET COUNT 332 10^3/uL (150-450); RED BLOOD COUNT 4.62 10^6/uL (3.72-5.28); RED CELL DISTRIBUTION WIDTH 13.2 % (11.5-14.0); SEGMENTED NEUTROPHILS % (AUTO) 46.1 % (42-78); TOTAL CELLS COUNTED % (AUTO) 100 %; WHITE BLOOD COUNT 4.2 10^3/uL (4.0-10.5)
--- NOTE | 2020-03-31 15:16 | ER Document Report ---
ED GI/ - General Chief Complaint: Abdominal Pain Stated Complaint: ABDOMINAL PAIN/NAUSEA Time Seen by Provider: 03/31/20 14:24 Primary Care Provider: RICHA MENDENHALL PA-C [Primary Care Provider] - Follow up as needed Notes: CHIEF COMPLAINT: Pelvic pain since last night HPI: 40-year-old female presenting to the emergency department complaining of sudden onset of sharp pelvic pain that began last night has been fairly constant has had nausea no vomiting no fever no dysuria. No abnormal vaginal discharge or bleeding. Patient states that she has been trying to get but does not know if she is . ROS: See HPI - all other systems were reviewed and are otherwise negative Constitutional: no fever or recent illness Eyes: no drainage, no blurred vision ENT: no runny nose, no sore throat Cardiovascular: no chest pain Resp: no SOB, no cough GI: no vomiting, no diarrhea, positive pelvic pain : no dysuria, no vaginal discharge Integumentary: no rash Allergy: no hives Musculoskeletal: no extremity pain or swelling Neurological: no numbness/tingling, no weakness MEDICATIONS: I agree with the patient medications as charted by the RN. ALLERGIES: I agree with the allergies as charted by the RN. PAST MEDICAL HISTORY/PAST SURGICAL HISTORY: Reviewed and agree as charted by RN. SOCIAL HISTORY: Reviewed and agree as charted by RN. FAMILY HISTORY: No significant familial comorbid conditions directly related to patient complaint EXAM: Reviewed vital signs as charted by RN. CONSTITUTIONAL: Alert and oriented and responds appropriately to questions. Well-appearing; well-nourished HEAD: Normocephalic; atraumatic EYES: PERRL; Conjunctivae clear, sclerae non-icteric ENT: normal nose; no rhinorrhea; moist mucous membranes; pharynx without lesions noted NECK: Supple without meningismus; non-tender; no cervical lymphadenopathy, no masses CARD: RRR; no murmurs, no clicks, no rubs, no gallops; symmetric distal pulses RESP: Normal chest excursion without splinting or tachypnea; breath sounds clear and equal bilaterally; no wheezes, no rhonchi, no rales ABD/GI: Normal bowel sounds; non-distended; soft, non-tender, no rebound, no guarding; no palpable organomegaly or masses : Female nurse customer retention representative present. External genitalia normal. No skin lesions noted. Pelvic Exam: No active bleeding. Small amount of a thin yellowish- greenish discharge. Cervix appears normal. Positive mild cMT. No lesions or masses. Uterus normal size and mildly tender. Right/Left adnexa normal size and mildly tender bilaterally. BACK: The back appears normal and is non-tender to palpation, there is no CVA tenderness EXT: Normal ROM in all joints; non-tender to palpation; no cyanosis, no effusions, no edema SKIN: Normal color for age and race; warm; dry; good turgor; no acute lesions noted NEURO: Moves all extremities equally; Motor and sensory function intact PSYCH: The patient's mood and manner are appropriate. Grooming and personal hygiene are appropriate. MDM: 40-year-old female who is not presenting for pelvic pain. Could be ruptured ovarian cyst could be PID. She is mildly tender on her bimanual exam. Patient's lab work did not show acute emergent abnormalities. Awaiting radiology results and urinalysis TRAVEL OUTSIDE OF THE [place] IN LAST 30 DAYS: No - Related Data Allergies/Adverse Reactions: oxycodone HCl [From Percocet] Allergy (Intermediate, Verified 03/31/20 14:15) Hives Past Medical History - Social History Smoking Status: Never Smoker Chew tobacco use (# tins/day): No Frequency of alcohol use: None Drug Abuse: None Family History: Arthritis, CAD, CVA, DM, Hyperlipidemia, Hypertension, Malignancy, Thyroid Disfunction Patient has homicidal ideation: No - Past Medical History Cardiac Medical History: Reports: Hx Pulmonary Embolism - When Denies: Hx Coronary Artery Disease, Hx Hypertension Pulmonary Medical History: Reports: Hx Bronchitis, Hx Pneumonia Denies: Hx Asthma, Hx COPD Neurological Medical History: Reports: Hx Migraine. Denies: Hx Seizures Endocrine Medical History: Denies: Hx Diabetes Mellitus Type 1, Hx Diabetes Mellitus Type 2, Hx Hyperthyroidism, Hx Hypothyroidism Renal/ Medical History: Reports: Hx Ectopic - 3, Hx Ovarian Cysts. Denies: Hx Peritoneal Dialysis GI Medical History: Denies: Hx Cirrhosis, Hx Crohn's Disease, Hx Hepatitis, Hx Ulcerative Colitis Musculoskeletal Medical History: Denies Hx Arthritis, Denies Hx Fibromyalgia, Reports Hx Musculoskeletal Deformity Skin Medical History: Denies Hx Eczema, Denies Hx Psoriasis Psychiatric Medical History: Reports: Hx Depression - With stillborn at the time her father had Infectious Medical History: Denies: Hx Hepatitis Past Surgical History: Reports: Hx Appendectomy, Hx Section, Hx Dilation and Curettage, Hx Gynecologic Surgery - Left Salpingectomy with ectopic , Hx Oral Surgery - [place] teeth, Hx Tubal Ligation, Other - Left salpingectomy for ectopic - Immunizations Immunizations up to date: Yes Hx Diphtheria, Pertussis, Tetanus Vaccination: Yes - 2014 Physical Exam - Vital signs Vitals: Temp Pulse Resp BP Pulse Ox 98.7 F 74 18 117/70 100 03/31/20 14:14 03/31/20 14:14 03/31/20 14:14 03/31/20 14:14 03/31/20 14:14 Course - Re-evaluation Re-evalutation: 03/31/20 17:11 Patient's ultrasound does not show evidence of acute emergent abnormality small amount of free fluid may have been a ruptured ovarian cyst, no concern for TOA, pelvic exam, lab work does not show acute emergent abnormalities but given her tenderness across the pelvis cannot completely rule out PID. She is not . Will place her on anti-inflammatories but also on a course of antibiotics to cover for PID and refer patient into the [facility] SUPER[facility] for follow-up - Vital Signs Vital signs: Temp Pulse Resp BP Pulse Ox 98.7 F 74 18 117/70 100 03/31/20 14:15 03/31/20 14:14 03/31/20 14:14 03/31/20 14:14 03/31/20 14:14 - Laboratory Result Diagrams: 03/31/20 15:07 03/31/20 15:07 Laboratory results interpreted by me: 03/31/20 03/31/20 14:45 15:07 BUN 6 L Urine Blood SMALL H Discharge - Discharge Clinical Impression: Acute pelvic pain, female, PID (acute pelvic inflammatory disease) Condition: Stable Disposition: HOME, SELF-CARE Additional Instructions: Take the medications as prescribed. Follow-up closely with [facility] SUPERVIS[facility] for further evaluation and treatment call for appointment. Your ultrasound imaging showed a small amount of free fluid in the pelvis which is a nonspecific finding. There were no other acute alarming abnormalities. Her lab work did not show any acute findings. There is some concern given your exam that you may have ruptured an ovarian cyst or you may have early pelvic inflammatory disease. Take the antibiotics and return if you have worsening pain or fever greater than 101 Prescriptions: Doxycycline Monohydrate 100 mg PO BID #28 capsule Metronidazole [Flagyl 500 mg Tablet] 500 mg PO Q6H #28 tablet Diclofenac Sodium [Voltaren 50 Mg Tablet.] 50 mg PO BID #20 tablet. Referrals: RICHA MENDENHALL PA-C [Primary Care Provider] - Follow up as needed
[2020-03-31 15:35] LABS: ALBUMIN 3.7 g/dL (3.5-5.0); ALKALINE PHOSPHATASE 64 U/L (38-126); ASPARTATE AMINO TRANSFERASE 18 U/L (14-36); BILIRUBIN,TOTAL 0.5 mg/dL (0.2-1.3); BLOOD UREA NITROGEN 6 mg/dL (7-20); CALCIUM 8.9 mg/dL (8.4-10.2); GLUCOSE 102 mg/dL (75-110); POTASSIUM 4.3 mmol/L (3.6-5.0); TOTAL PROTEIN 7.3 g/dL (6.3-8.2)
[2020-03-31 15:40] LABS: ANION GAP 5 (5-19); CARBON DIOXIDE 28 mmol/L (22-30); CHLORIDE 105 mmol/L (98-107)
[2020-03-31 16:23] LABS: T.VAGINALIS (WET MOUNT) NO TRICHOMONAS SEEN; WBCS (WET MOUNT) RARE WBCS SEEN; YEAST (WET MOUNT) NO YEAST SEEN
[2020-03-31] MEDS ORDERED: KETOROLAC TROMETHAMINE INJ/PF 30 MG/1 ML SDV IV ONE (16:25)
--- NOTE | 2020-03-31 16:41 | RADIOLOGY REPORT (SQ) ---
EXAM DESCRIPTION: U/S NON OB PEL TV W/DOPPLER IMAGES COMPLETED DATE/TIME: 03/31/2020 4:09 pm REASON FOR STUDY: lower abdominal/pelvic pain COMPARISON: None. TECHNIQUE: Dynamic and static grayscale images acquired of the pelvis via transvaginal approach and recorded on PACS. Additional selected color Doppler and spectral images recorded. LIMITATIONS: None. FINDINGS: UTERUS: Contour normal. No mass. ENDOMETRIAL STRIPE: No focal or generalized thickening. No masses. CERVIX: No nabothian cysts. RIGHT OVARY AND DOPPLER: Normal size. No worrisome masses. Normal arterial vascular flow without evid ence for torsion. LEFT OVARY AND DOPPLER: Ovary not visualized. FREE FLUID: Small amount of endometrial free fluid, nonspecific. OTHER: No other significant finding. MEASUREMENTS: UTERUS: 8.8 x 6.1 x 4.7 cm ENDOMETRIAL STRIPE: 10 mm RIGHT OVARY: 3.5 x 2.2 x 2.0 cm LEFT OVARY: Not visualized. IMPRESSION: Small amount of endometrial free fluid, nonspecific. Nonvisualized left ovary. TECHNICAL DOCUMENTATION: JOB ID: [id number] [id number] 2010 [employer] All Rights Reserved Rev-03/04 Reading location - IP/workstation name: [email or web address]
[2020-03-31 17:43] VITALS: BP 119/68
[2020-03-31 17:51] LABS: CHLAM PCR NOT DETECTED (NOT DETECT)
== END 2020-03-31 17:35 | disposition home or self-care (01) ==
LOC: ER 14:04
DX: N73.9 Female pelvic inflammatory disease, unspecified (principal); R10.2 Pelvic and perineal pain; Z88.6 Allergy status to analgesic agent; Z88.5 Allergy status to narcotic agent
CPT/HCPCS: 99284; 96374; 36415; 87086; 87210; 84702; 85025; 80053; 81001; 87491; 87591; 76830; 93976; J1885

== ENCOUNTER → 2020-06-18 | Outpatient (CLI) | payer MEDICAID ==
[2020-06-18 12:02] VITALS: BP 108/66
--- NOTE | 2020-06-18 12:02 | ER [facility] ASSESSMENT REPORT ---
Intake - In the Last 14 days Have you traveled outside [place]?: No Have you been in close contact with someone CONFIRMED: Yes Worked in Healthcare?: No - Symptoms Subjective Fever(Jackson feverish): No Chills: No Muscule Aches: No Runny Nose: No Sore Throat: No Cough (New or worsening chronic cough): No Shortness of breath: No Nausea or Vomiting: No Headache: No Abdominal Pain: No Diarrhea(3 or more loose stools in last 24 hours): No - Do you have any of the following Chronic lung disease: Asthma or emphysema or COPD: No Cystic Fibrosis: No Diabetes: No High Blood Pressure: No Cardiovascular Disease: No Chronic Kidney Disease: No Chronic Liver Disease: No Chronic blood disorder like Sickle Cell Disease: No Weak immune system due to disease or medication: No Neurologic condition that limits movement: No Developmental delay - Moderate to Severe: No Recent (within past 2 weeks) or current : No Morbid Obesity (>100 pounds over ideal weight): Yes - Objective Temperature: 98.9 F Pulse Rate: 84 Respiratory Rate: 16 Blood Pressure: 108/66 O2 Sat by Pulse Oximetry: 95 Objective: Given above, testing performed: If Testing Performed: Test Specimen Type Sent to General - General Information source: Patient Notes: Patient presents to the [facility] for screening for the coronavirus. Patient reports recent exposure to someone who did test positive. Patient denies any symptoms at this time. - Related Data Allergies/Adverse Reactions: oxycodone HCl [From Percocet] Allergy (Intermediate, Verified 03/31/20 14:15) Hives Past Medical History - General Information source: Patient - Social History Smoking Status: Never Smoker Lives with: Family Family History: Arthritis, CAD, CVA, DM, Hyperlipidemia, Hypertension, Ma lignancy, Thyroid Disfunction - Past Medical History Cardiac Medical History: Reports: Hx Pulmonary Embolism - When Denies: Hx Coronary Artery Disease, Hx Hypertension Pulmonary Medical History: Reports: Hx Bronchitis, Hx Pneumonia Denies: Hx Asthma, Hx COPD Neurological Medical History: Reports: Hx Migraine. Denies: Hx Seizures Endocrine Medical History: Denies: Hx Diabetes Mellitus Type 1, Hx Diabetes Mellitus Type 2, Hx Hyperthyroidism, Hx Hypothyroidism Renal/ Medical History: Reports: Hx Ectopic - 3, Hx Ovarian Cysts. Denies: Hx Peritoneal Dialysis Musculoskeletal Medical History: Reports Hx Musculoskeletal Deformity Skin Medical History: Denies Hx Eczema, Denies Hx Psoriasis Psychiatric Medical History: Reports: Hx Depression - With stillborn at the time her father had Infectious Medical History: Denies: Hx Hepatitis Past Surgical History: Reports: Hx Appendectomy, Hx Section, Hx Dilation and Curettage, Hx Gynecologic Surgery - Left Salpingectomy with ectopic , Hx Oral Surgery - [place] teeth, Hx Tubal Ligation, Other - Left salpingectomy for ectopic Physical Exam - Notes Notes: The patient was evaluated during the global Covid 19 pandemic, and that diagnosis was suspected/considered upon their initial presentation. Their evaluation, treatment and testing was consistent with current guidelines for patients who present with complaints or symptoms that may be related to Covid 19. Full physical exam could not be performed due to covid 19 isolation protocols. Constitutional: Nontoxic appearance, no acute distress Eyes: Nonicteric, extraocular movements intact, sclera clear Cardiovascular: Heart rate and rhythm regular, no JVD Respiratory: Breath sounds clear bilaterally, nonlabored breathing, no use of accessory muscles Gastrointestinal: Abdomen not distended Muculoskeletal: Moves all extremities well Skin: Normal color Neuro: Awake alert oriented, normal speech Psych: Normal mood and affect Diagnostic Results Laboratory Results: Patient presents with exposure worrisome for possible Covid 19. Patient does not have emergency worrying symptoms such as difficulty breathing, shortness of breath, chest pain, pressure, confusion or cyanosis. Patient appears suitable for discharge as they are not of an advanced age, do not have any chronic medical conditions such as diabetes, CAD, immune deficiency, chronic lung disease or chronic kidney disease. Patient's vital signs are stable and patient is nontoxic in appearance. Good return precautions have been discussed with patient, patient verbalized understanding and is agreeable with discharge plan of care at this time. Patient Education/Counseling Counseling/Education: Patient was provided with discharge information including: As a person under investigation for Covid 19, the [place] department of Health and Human Services, division of public health advises you to adhere to the following guidance until your test results are reported to you. If your test result is positive, you will receive additional information from your provider and your local health department at that time. Remain at home until you are cleared by the health provider or public health authorities. Keep a log of visitors to your home, notify any visitors to your home of your isolation status. If you plan to move to a new address or leave the county, notify the local health department in your County. Call your doctor or seek care if you have an urgent medical need. Before seeking medical care, call ahead to get instructions from the provider before arriving at the medical office clinic or hospital. Notify them that you are being tested for the virus that causes Covid 19 so that arrangements can be made, as necessary, to prevent transmission to others in the healthcare setting. Next, notify the local health department in your county. If a medical emergency arises and you need to call 911, inform the first responders that you are being tested for the virus that causes Covid 19. Next, notify the local health department in your county. [facility] Discharge - Discharge Clinical Impression: Encounter for screening laboratory testing for COVID-19 virus in asymptomatic patient Condition: Stable Disposition: Home; Selfcare
== END ==
LOC: RDC 10:58
PROVIDERS: ATTEND Nurse Practitioner Family
DX: Z03.818 Encounter for observation for suspected exposure to other biological agents ruled out (principal)
CPT/HCPCS: 87635; 99201; 99211; C9803

== ENCOUNTER 2020-08-01 10:09 | Emergency (ER) | payer MEDICAID ==
[2020-08-01] MEDS ORDERED: HYDROCODONE/ACETAMINOPHEN 5-325 MG TABLET PO ONE (11:30)
[2020-08-01] MEDS ORDERED: BENZONATATE 100 MG CAPSULE PO ONE (11:30)
[2020-08-01] MEDS ORDERED: GUAIFENESIN/D-METHORPHAN (200-20 MG) SYRUP 10 ML PO ONE (11:32)
[2020-08-01 12:04] LABS: A TYPE INFLUENZA AG NEGATIVE (NEGATIVE); B INFLUENZA AG NEGATIVE (NEGATIVE)
--- NOTE | 2020-08-01 13:12 | ER Document Report ---
Entered by SHERINE SPANGLER SCRIBE 08/01/20 1127 Acting as scribe for:CARLI MACKENZIE MD ED General - General Stated Complaint: COUGH, BODYACHES, Time Seen by Provider: 08/01/20 11:02 Primary Care Provider: RICHA MENDENHALL PA-C [Primary Care Provider] - Follow up as needed Mode of Arrival: Ambulatory Information source: Patient Notes: This 40 year old female patient presents to the emergency department today with complaints of a two day history of a "cold" with a productive cough with green sputum, fevers, left ear pain, generalized body aches, and chest wall pain from the cough. She has not gotten a flu shot yet this year. Patient finished a 7- day prescription of Levaquin 2 days ago for a dental abscess. She has not had any known COVID-19 exposure. TRAVEL OUTSIDE OF THE [place] IN LAST 30 DAYS: No - Related Data Allergies/Adverse Reactions: oxycodone HCl [From Percocet] Adverse Reaction (Intermediate, Verified 08/01/20 12:18) Hives Past Medical History - General Information source: Patient - Social History Smoking Status: Never Smoker Frequency of alcohol use: Occasional Drug Abuse: None Lives with: Family Family History: Reviewed & Not Pertinent, Arthritis, CAD, CVA, DM, Hyperlipidemia, Hypertension, Malignancy, Thyroid Disfunction - Past Medical History Cardiac Medical History: Reports: Hx Pulmonary Embolism - When Pulmonary Medical History: Reports: Hx Bronchitis, Hx Pneumonia Neurological Medical History: Reports: Hx Migraine Renal/ Medical History: Reports: Hx Ectopic - 3, Hx Ovarian Cysts Musculoskeletal Medical History: Reports Hx Musculoskeletal Deformity Psychiatric Medical History: Reports: Hx Depression - With stillborn at the time her father had Past Surgical History: Reports: Hx Appendectomy, Hx Section, Hx Dilation and Curettage, Hx Gynecologic Surgery - Left Salpingectomy with ectopic , Hx Oral Surgery - [place] teeth, Hx Tubal Ligation, Other - Left salpingectomy for ectopic - Immunizations Immunizations up to date: Yes Hx Diphtheria, Pertussis, Tetanus Vaccination: Yes - 2014 Review of Systems - Review of Systems Constitutional: See HPI, Fever EENT: See HPI, Ear pain Cardiovascular: No symptoms reported Respiratory: See HPI, Cough Gastrointestinal: No symptoms reported Genitourinary: No symptoms reported Female Genitourinary: No symptoms reported Musculoskeletal: See HPI, Muscle pain Skin: No symptoms reported Hematologic/Lymphatic: No symptoms reported Neurological/Psychological: No symptoms reported -: Yes All other systems reviewed and negative Physical Exam - Vital signs Vitals: Temp Pulse Resp BP Pulse Ox 99.1 F 97 20 131/73 H 98 08/01/20 10:20 08/01/20 10:20 08/01/20 10:20 08/01/20 10:20 08/01/20 10:20 - Notes Notes: Physical Exam: General: Alert, appears well. HEENT: Normocephalic. Atraumatic. PERRL. Extraocular movements intact. Oropharynx clear. Right TM is bulging but otherwise normal, left TM is retracted but otherwise normal. No posterior oropharynx erythema or exudate. Neck: Supple. Non-tender. Respiratory: No respiratory distress. Coarse rhonchi bilaterally. Anterior chest wall tenderness to palpation. Cardiovascular: Regular rate and rhythm. Abdominal: Normal Inspection. Non-tender. No distension. Normal Bowel Sounds. Back: No gross abnormalities. Extremities: Moves all four extremities. Upper extremities: Normal inspection. Normal ROM. Lower extremities: Normal inspection. No edema. Normal ROM. Neurological: Normal cognition. AAOx4. Normal speech. Psychological: Normal affect. Normal Mood. Skin: Warm. Dry. Normal color. Course - Re-evaluation Re-evalutation: 08/01/20 13:12 The patient was evaluated during the global COVID-19 pandemic and that diagnosis was suspected/considered upon their initial presentation. Their evaluation, treatment and testing was consistent with current guidelines for patients who pr esent with complaints or symptoms that may be related to COVID-19. - Vital Signs Vital signs: Temp Pulse Resp BP Pulse Ox 99.0 F 97 20 131/73 H 98 08/01/20 12:15 08/01/20 10:20 08/01/20 10:20 08/01/20 10:20 08/01/20 10:20 Discharge - Discharge Clinical Impression: Viral upper respiratory tract infection, Encounter for laboratory testing for COVID-19 virus Condition: Stable Disposition: HOME, SELF-CARE Instructions: COVID-19 Guidance for Persons Under Investigation Additional Instructions: Upper Respiratory Illness You have a viral infection of the respiratory passages -- a "cold." This common infection causes nasal congestion, drainage, and often sore throat and cough. It is caused by a virus and is highly contagious. The disease usually lasts a week or more, though the worst symptoms are usually over in 3 or 4 days. There is no "cure" for the viral infection -- it must run its course. If there is a complication, such as bacterial infection in the nose, sinuses, middle ear, or bronchial tubes, antibiotics may be required, but antibiotics won't affect the virus. If you smoke, you should STOP!! Drink plenty of fluids. A humidifier may help. An expectorant medication or decongestant may make you more comfortable. Use acetaminophen or ibuprofen for fever or aches. See the doctor if fever persists over two or three days, if there is any significant worsening of your symptoms, or if you simply fail to improve as expected. Take the Tessalon Perles as prescribed to help control your cough. You should also try something like Delsym DM for additional cough suppression. Drink plenty of fluids and get plenty of rest. Take Tylenol and ibuprofen for aches and pains and fevers. Follow-up with your primary care provider if not improving over the next 7 to 10 days. Self isolate at home until you get the results of the Covid testing. RETURN TO THE EMERGENCY ROOM IF ANY NEW OR WORSENING SYMPTOMS. Prescriptions: Benzonatate [Tessalon Perles 100 mg Capsule] 100 mg PO ASDIR PRN #30 capsule PRN Reason: Referrals: RICHA MENDENHALL PA-C [Primary Care Provider] - Follow up as needed I personally performed the services described in the documentation, reviewed and edited the documentation which was dictated to the scribe in my presence, and it accurately records my words and actions.
[2020-08-01 13:21] VITALS: BP 105/62
== END 2020-08-01 13:34 | disposition home or self-care (01) ==
LOC: ER 10:09
DX: J06.9 Acute upper respiratory infection, unspecified (principal); B97.89 Other viral agents as the cause of diseases classified elsewhere; R05 Cough; R50.9 Fever, unspecified; H92.02 Otalgia, left ear; R07.89 Other chest pain; M79.10 Myalgia, unspecified site; Z87.01 Personal history of pneumonia (recurrent); Z20.828 Contact with and (suspected) exposure to other viral communicable diseases
CPT/HCPCS: 99283; 87635; 87804; J3490 ×2; C9803